=== PATIENT | female | born 1935 | race Caucasian/White ===

== ENCOUNTER 2016-06-16 17:51 | Emergency (ER) | payer OTHER, MEDICARE ==
[~2016-06-16] VITALS: Ht 154.9 cm; Wt 70.3 kg
[~2016-06-16 17:51] MED LIST: BACL10TA PO; BENA40TA2 PO; CALC-112 PO; CALC-226 PO; CARV12.548 PO; CETI1TAB2 PO; DILT300C3 PO; GALA12TA4 PO; MEMA10TA12 PO; OMEG1CAP48 PO; SENN-153 PO; SIMV20TA2 PO; VIT1CAPS33 PO; WARF3TAB PO; WARF4TAB2 PO
[2016-06-16 18:29] VITALS: BP 143/69; PULSE 64; RESP 18; TEMP 96.3; O2SAT 93
[2016-06-16 18:58] LABS: BASOPHILS # (AUTO) 0.1 K/uL (0.0-0.2); BASOPHILS % (AUTO) 0.6 % (0.0-2.0); EOSINOPHILS # (AUTO) 0.3 K/uL (0.0-0.4); EOSINOPHILS % (AUTO) 3.2 % (0.0-4.0); HEMATOCRIT 41.1 % (36-48); HEMOGLOBIN 14.1 g/dL (12.0-16.0); LYMPHOCYTES # (AUTO) 1.3 K/uL (1.0-5.5); LYMPHOCYTES % (AUTO) 14.7 % (20.5-51.5); MEAN CORPUSCULAR HEMOGLOBIN 32 pg (27-31); MEAN CORPUSCULAR HGB CONC 34 % (32-36); MEAN CORPUSCULAR VOLUME 94 fL (79.0-98.0); MONOCYTES # (AUTO) 1.1 K/uL (0.0-1.0); MONOCYTES % (AUTO) 11.9 % (1.7-9.3); NEUTROPHILS # (AUTO) 6.3 K/uL (1.8-7.7); NEUTROPHILS % (AUTO) 69.6 % (40.0-70.0); PLATELET COUNT (AUTO) 160 K/uL (130-430); RED BLOOD CELL COUNT(AUTO) 4.39 MIL/uL (4.2-6.2); RED CELL DISTRIBUTION WIDTH 14.1 % (9.0-15.0); WHITE BLOOD COUNT (AUTO) 9.1 K/uL (4.8-10.8)
[2016-06-16 19:01] LABS: ANION GAP 8 (5-15); CALCIUM 8.7 mg/dL (8.4-11.0); CHLORIDE 100 mmol/L (98-107); CREATININE 1.24 mg/dL (0.55-1.30); GLUCOSE 148 mg/dL (70-99); SODIUM SERUM 136 mmol/L (136-145); UREA NITROGEN, BLOOD 33 mg/dL (8-21)
[2016-06-16 19:06] LABS: ALANINE AMINOTRANSFERASE 21 U/L (12-78); ALBUMIN 3.6 g/dL (3.4-4.8); ASPARTATE AMINOTRANSFERASE 16 U/L (10-37); CREATINE KINASE, TOTAL 39 U/L (26-192); TOTAL BILIRUBIN 0.3 mg/dL (0.0-1.0); TOTAL PROTEIN, SERUM 7.6 g/dL (6.4-8.3)
[2016-06-16 19:09] LABS: PROTHROMBIN TIME 41.4 SECS (9.5-12.5)
[2016-06-16 19:10] LABS: INR 3.7 (0.8-1.2)
[2016-06-16 20:25] VITALS: BP 124/72; PULSE 84; RESP 18; TEMP 96.3; O2SAT 95
== END 2016-06-16 20:54 | disposition home or self-care (01) ==
LOC: SED 17:51
DX: R42 Dizziness and giddiness (principal); I10 Essential (primary) hypertension; E78.00 Pure hypercholesterolemia, unspecified; Z88.2 Allergy status to sulfonamides; Z88.5 Allergy status to narcotic agent; Z88.8 Allergy status to other drugs, medicaments and biological substances; Z86.73 Personal history of transient ischemic attack (TIA), and cerebral infarction without residual deficits; Z86.59 Personal history of other mental and behavioral disorders; Z79.899 Other long term (current) drug therapy
CPT/HCPCS: 36415; 70450-TC; 71010; 80053; 82550-TC; 84484; 85025; 85610-TC; 85730-TC; 93005; 99285

== ENCOUNTER 2016-06-25 08:10 | Outpatient (CLI) | payer OTHER, MEDICARE | END 2016-06-25 18:48 | disposition home or self-care (01) | LOC: SUS 08:10 | PROVIDERS: ATTEND Internal Medicine | DX: M54.6 Pain in thoracic spine (principal); R11.0 Nausea | CPT/HCPCS: 76700-TC ==

== ENCOUNTER 2019-12-17 13:28 | Emergency (ER) | payer OTHER, MEDICARE ==
[~2019-12-17] VITALS: Ht 154.9 cm; Wt 62.6 kg
[~2019-12-17 13:28] MED LIST changes: -BENA40TA2 PO; +BENA40TA8 PO; -CALC-226 PO; +CALC-823 PO; -DILT300C3 PO; +DILT300C54 PO; +MEMA10TA PO; -MEMA10TA12 PO
[2019-12-17 13:34] VITALS: BP_SYST 190
--- NOTE | 2019-12-17 13:34 | NUR ---
Patient to ER bed 06 to gown for evaluation. Side rails up. Report given to FLOYD FLOREZ.
--- NOTE | 2019-12-17 13:50 | NUR ---
ER Dr. DOWNS at bedside examining patient.
--- NOTE | 2019-12-17 14:00 | NUR ---
BIB HER DAUGHTER FOR ABD PAIN IN THE LOWER MIDDLE. HAS NOT HAD A BM IN SEVERAL DAYS. PT HAS DEMENTIA/ALZHEIMER'S. V/S STABLE AND AAOX3. WILL MONITOR FOR SAFETY
[2019-12-17 14:11] LABS: BASOPHILS % (AUTO) 0.7 % (0.0-2.0); EOSINOPHILS # (AUTO) 0.1 K/uL (0.0-0.4); EOSINOPHILS % (AUTO) 1.1 % (0.0-4.0); HEMATOCRIT 45.5 % (36-48); HEMOGLOBIN 15.1 g/dL (12.0-16.0); LYMPHOCYTES % (AUTO) 17.3 % (20.5-51.5); MEAN CORPUSCULAR HEMOGLOBIN 33 pg (27-31); MEAN CORPUSCULAR HGB CONC 33 % (32-36); MEAN CORPUSCULAR VOLUME 98 fL (79.0-98.0); MONOCYTES # (AUTO) 0.5 K/uL (0.0-1.0); NEUTROPHILS # (AUTO) 4.2 K/uL (1.8-7.7); NEUTROPHILS % (AUTO) 71.9 % (40.0-70.0); PLATELET COUNT (AUTO) 164 K/uL (130-430); RED BLOOD CELL COUNT(AUTO) 4.63 MIL/uL (4.2-6.2); RED CELL DISTRIBUTION WIDTH 14.1 % (9.0-15.0); WHITE BLOOD COUNT (AUTO) 5.8 K/uL (4.8-10.8)
--- NOTE | 2019-12-17 14:20 | NUR ---
PT ABLE TO AMBULATE TO BATHROOM WITH WALKER. VOIDED, SPECIMEN SENT TO LAB
[2019-12-17 14:29] LABS: ANION GAP 8 (5-15); CALCIUM 9.3 mg/dL (8.4-11.0); CHLORIDE 102 mmol/L (98-107); GLUCOSE 110 mg/dL (70-99); POTASSIUM 4.3 mmol/L (3.5-5.1); SODIUM SERUM 137 mmol/L (136-145); UREA NITROGEN, BLOOD 16 mg/dL (8-21)
--- NOTE | 2019-12-17 14:30 | NUR ---
Patient transported to radiology via , accompanied by SHAKER PLATE OPERATOR.
[2019-12-17 14:35] LABS: ALANINE AMINOTRANSFERASE 27 U/L (12-78); ALBUMIN 3.4 g/dL (3.4-4.8); ASPARTATE AMINOTRANSFERASE 19 U/L (10-37); TOTAL BILIRUBIN 0.4 mg/dL (0.0-1.0)
[2019-12-17 14:38] LABS: BILIRUBIN,URINE NEGATIVE (NEGATIVE); BLOOD, URINE NEGATIVE (NEGATIVE); CLARITY/URINE CLOUDY (CLEAR); COLOR,URINE YELLOW (YELLOW); GLUCOSE,URINE NEGATIVE (NEGATIVE); KETONES,URINE NEGATIVE (NEGATIVE); LEUKOCYTE ESTERASE ,URINE 3+ (NEGATIVE); NITRITE, URINE POSITIVE (NEGATIVE); PH,URINE 7.5 (5.0-8.0); PROTEIN URINE NEGATIVE (NEGATIVE); UROBILINOGEN,URINE 0.2 (0.2-1.0)
[2019-12-17 14:52] LABS: BACTERIA,URINE MODERATE /HPF (None Seen); MUCUS,URINE 1+ /LPF (None Seen); RBC,URINE 0-3 /HPF (0-3)
[2019-12-17 14:54] VITALS: BP_SYST 190
--- NOTE | 2019-12-17 15:00 | NUR ---
Patient given written and verbal discharge instructions and verbalizes understanding. ER MD discussed with patient the results and treatment provided. Patient in stable condition. ID arm band removed. IV catheter removed intact and dressing applied, no active bleeding. Rx of MACROBID given. Patient educated on pain management and to follow up with PMD. Pain Scale 3/10. Opportunity for questions provided and answered. Medication side effect fact sheet provided.
== END 2019-12-17 14:54 | disposition home or self-care (01) ==
LOC: SED 13:28
DX: N39.0 Urinary tract infection, site not specified (principal); I10 Essential (primary) hypertension; Z88.2 Allergy status to sulfonamides; Z88.5 Allergy status to narcotic agent; Z88.8 Allergy status to other drugs, medicaments and biological substances; Z79.899 Other long term (current) drug therapy
CPT/HCPCS: 36415; 80053; 81000-TC; 85025; 87086; 87186-TC; 99284

== ENCOUNTER 2020-06-08 09:32 | Emergency (ER) | payer OTHER, MEDICARE ==
[~2020-06-08] VITALS: Ht 152.4 cm; Wt 61.7 kg
--- NOTE | 2020-06-08 09:43 | NUR ---
Patient to ER bed 06 to gown for evaluation. Side rails up.
[2020-06-08 09:44] VITALS: BP_SYST 163
--- NOTE | 2020-06-08 09:50 | NUR ---
Pt came to ER after fracturing toe. Was seen in urgetn care, splint in place, no distress noted.
--- NOTE | 2020-06-08 09:50 | NUR ---
ER at bedside examining patient.
[2020-06-08] MEDS ORDERED: IBUPROFEN 400 MG TABLET ONE (09:52)
[2020-06-08] MEDS: IBUPROFEN 400 MG TABLET PO ONE (10:03)
[2020-06-08] MEDS: HYDROcodone/ACETAMIN 5-325 MG TAB (NORCO/ VICODIN) PO ONE (10:04)
--- NOTE | 2020-06-08 10:30 | NUR ---
Pt resting in [facility] at this time, daughter at bedside
[2020-06-08] MEDS ORDERED: IBUP-1969 PO (10:46)
[2020-06-08] MEDS ORDERED: HYDR-3110 PO ×2 (10:46→10:47)
[2020-06-08] MEDS: MORPHINE 2 MG/ML INJ. SYRINGE IM ONE (10:47)
[2020-06-08 11:06] VITALS: BP_SYST 145
--- NOTE | 2020-06-08 11:07 | NUR ---
Patient given written and verbal discharge instructions and verbalizes understanding. ER MD discussed with patient the results and treatment provided. Patient in stable condition. ID arm band removed. Rx of [place] and Motrin given. Patient educated on pain management and to follow up with PMD. Pain Scale 2/10. Opportunity for questions provided and answered. Medication side effect fact sheet provided.
== END 2020-06-08 11:06 | disposition home or self-care (01) ==
LOC: SED 09:32
DX: S82.841A Displaced bimalleolar fracture of right lower leg, initial encounter for closed fracture (principal); I10 Essential (primary) hypertension; Z88.2 Allergy status to sulfonamides; Z88.5 Allergy status to narcotic agent; Z88.8 Allergy status to other drugs, medicaments and biological substances; Z79.899 Other long term (current) drug therapy; W18.39XA Other fall on same level, initial encounter; Y93.89 Activity, other specified; Y92.89 Other specified places as the place of occurrence of the external cause; Y99.8 Other external cause status
CPT/HCPCS: 29515; 73610; 73630; 96372; 99284; J2270

== ENCOUNTER 2020-08-27 10:53 | Day surgery (SDC) | payer OTHER, MEDICARE, SELFPAY ==
[~2020-08-27] VITALS: Ht 154.9 cm; Wt 59.0 kg
[~2020-08-27 10:53] MED LIST changes: +HYDR-4280 PO; +IBUP-1969 PO
[2020-08-27] MEDS ORDERED: MEPERIDINE 100 MG INJ. 100 MG/ML VIAL ONE (11:12)
[2020-08-27] MEDS: MIDAZOLAM HCL 5 MG/5 ML VIAL ONE ×2 (12:36→12:38)
[2020-08-27] MEDS: NALOXONE HCL 0.4 MG/ML AMP (NARCAN) IVP ONE ×2 (13:14→13:17)
[2020-08-27] MEDS: FLUMAZENIL 0.1 MG/ML IVP ONE ×2 (13:15→13:18)
[2020-08-27 15:00] VITALS: BP_SYST 98
[2020-09-09] MEDS ORDERED: BENA20TA9 PO (13:31)
[2020-09-09] MEDS ORDERED: MEMA10TA PO (13:31)
[2020-09-09] MEDS ORDERED: VIT1CAPS33 PO (13:31)
[2020-09-09] MEDS ORDERED: XARELTO (13:31)
[2020-09-09] MEDS ORDERED: SIMV-43 PO (13:31)
[2020-09-09] MEDS ORDERED: BACL10TA PO (13:31)
[2020-09-09] MEDS ORDERED: FLUT16SP24 NS (13:31)
[2020-09-09] MEDS ORDERED: SENN8.6T19 PO (13:31)
[2020-09-09] MEDS ORDERED: GALA16CA PO (13:31)
[2020-09-09] MEDS ORDERED: CALC-1100 PO (13:31)
[2020-09-09] MEDS ORDERED: DILT360C29 PO (13:31)
[2020-09-09] MEDS ORDERED: CARV12.548 PO (13:31)
[2020-09-09] MEDS ORDERED: ACETAMINOPHEN (13:31)
[2020-09-09] MEDS ORDERED: ZYRTEC PO (13:31)
[2020-09-09] MEDS ORDERED: OMEG500C3 PO (13:31)
[2020-09-12] MEDS ORDERED: LOSA50TA3 PO (09:52)
== END 2020-08-27 14:50 ==
LOC: SGI 10:53 → SMU 10:59 → SGI 14:50
PROVIDERS: ATTEND Internal Medicine Gastroenterology
DX: R13.10 Dysphagia, unspecified (principal); K29.50 Unspecified chronic gastritis without bleeding; K21.00 Gastro-esophageal reflux disease with esophagitis, without bleeding; G30.9 Alzheimer's disease, unspecified; F02.80 Dementia in other diseases classified elsewhere, unspecified severity, without behavioral disturbance, psychotic disturbance, mood disturbance, and anxiety; E78.5 Hyperlipidemia, unspecified; I10 Essential (primary) hypertension; I26.99 Other pulmonary embolism without acute cor pulmonale; Z20.828 Contact with and (suspected) exposure to other viral communicable diseases; Z79.899 Other long term (current) drug therapy
CPT/HCPCS: 36415; 43239; 43248; 82962; 87081; 88305; 88312; 88313; 99152; C1769; G0378; J2175; J2250; J2310; J3490; J7030; U0003

== ENCOUNTER 2021-02-10 09:53 | Inpatient (IN) | payer OTHER, MEDICARE, SELFPAY ==
[~2021-02-10] VITALS: Ht 154.9 cm; Wt 62.1 kg
[~2021-02-10 09:53] MED LIST changes: +ACETAMINOPHEN; -BENA40TA8 PO; +CALC-1100 PO; -CALC-112 PO; -CALC-823 PO; -CETI1TAB2 PO; -DILT300C54 PO; +DILT360C29 PO; +FLUT16SP24 NS; -GALA12TA4 PO; +GALA16CA PO; -HYDR-4280 PO; -IBUP-1969 PO; +LOSA50TA3 PO; -OMEG1CAP48 PO; +OMEG500C3 PO; -SENN-153 PO; +SENN8.6T19 PO; +SIMV-43 PO; -SIMV20TA2 PO; -WARF3TAB PO; -WARF4TAB2 PO; +XARELTO; +ZYRTEC PO
[2021-02-10 10:09] VITALS: BP_SYST 135
[2021-02-10] MEDS ORDERED: traMADol HCL HCL 50 MG TABLET (ULTRAM) PO ONE (10:30)
[2021-02-10 10:58] LABS: BASOPHILS % (AUTO) 0.8 % (0.0-2.0); EOSINOPHILS # (AUTO) 0.2 K/uL (0.0-0.4); EOSINOPHILS % (AUTO) 4.7 % (0.0-4.0); HEMATOCRIT 39.3 % (36-48); HEMOGLOBIN 13.2 g/dL (12.0-16.0); LYMPHOCYTES # (AUTO) 0.4 K/uL (1.0-5.5); LYMPHOCYTES % (AUTO) 7.6 % (20.5-51.5); MEAN CORPUSCULAR HEMOGLOBIN 34 pg (27-31); MEAN CORPUSCULAR HGB CONC 34 % (32-36); MEAN CORPUSCULAR VOLUME 100 fL (79.0-98.0); MONOCYTES % (AUTO) 19.5 % (1.7-9.3); NEUTROPHILS # (AUTO) 3.5 K/uL (1.8-7.7); NEUTROPHILS % (AUTO) 67.4 % (40.0-70.0); PLATELET COUNT (AUTO) 169 K/uL (130-430); RED BLOOD CELL COUNT(AUTO) 3.93 MIL/uL (4.2-6.2); RED CELL DISTRIBUTION WIDTH 13.3 % (9.0-15.0); WHITE BLOOD COUNT (AUTO) 5.2 K/uL (4.8-10.8)
[2021-02-10 11:07] LABS: ANION GAP 6 (5-15); CALCIUM 8.3 mg/dL (8.4-11.0); CHLORIDE 89 mmol/L (98-107); CREATININE 0.65 mg/dL (0.55-1.30); GLUCOSE 107 mg/dL (70-99); POTASSIUM 4.1 mmol/L (3.5-5.1); SODIUM SERUM 123 mmol/L (136-145); UREA NITROGEN, BLOOD 10 mg/dL (8-21)
[2021-02-10 11:13] LABS: ALANINE AMINOTRANSFERASE 17 U/L (12-78); ALBUMIN 2.8 g/dL (3.4-4.8); ASPARTATE AMINOTRANSFERASE 16 U/L (10-37); TOTAL BILIRUBIN 0.4 mg/dL (0.0-1.0)
[2021-02-10] MEDS ORDERED: ONDANSETRON 4 MG ODT TAB PO ONE (11:15)
[2021-02-10 11:25] LABS: BILIRUBIN,URINE NEGATIVE (NEGATIVE); BLOOD, URINE 3+ (NEGATIVE); CLARITY/URINE CLEAR (CLEAR); COLOR,URINE YELLOW (YELLOW); GLUCOSE,URINE NEGATIVE (NEGATIVE); KETONES,URINE NEGATIVE (NEGATIVE); LEUKOCYTE ESTERASE ,URINE NEGATIVE (NEGATIVE); NITRITE, URINE NEGATIVE (NEGATIVE); PROTEIN URINE NEGATIVE (NEGATIVE); UROBILINOGEN,URINE 0.2 (0.2-1.0)
[2021-02-10 11:57] LABS: BACTERIA,URINE RARE /HPF (None Seen); RBC,URINE 20-50 /HPF (0-3); WBC,URINE 0-3 /HPF (0-3)
[2021-02-10] MEDS ORDERED: NACL 0.9% 1,000 ML IV ONE (12:15)
[2021-02-10] MEDS ORDERED: cefTRIAXone 1 GM IVPB PREMIX 50 ML IV ONE (12:15)
[2021-02-10 14:55] VITALS: BP_SYST 129
[2021-02-10] MEDS: 0.45% NACL 1,000 ML IV SCH ×2 (15:00→20:45)
[2021-02-10 16:59] VITALS: BP_SYST 129
[2021-02-10 20:00] VITALS: BP_SYST 149
[2021-02-10] MEDS: SENNOSIDES 8.6 MG TABLET PO SCH (20:40)
[2021-02-10] MEDS: MEMANTINE HCL 5 MG TABLET PO SCH (20:40)
[2021-02-10] MEDS: CARVEDILOL 12.5 MG TABLET (COREG) PO SCH (20:41)
[2021-02-10] MEDS: RIVAROXABAN 10 MG TABLET PO SCH (20:45)
[2021-02-10] MEDS: MULTIVITS,CA,MINERALS/IRON/FA 1 TABLET PO SCH (20:46)
[2021-02-10] MEDS ORDERED: VIT C PO SCH (21:00)
[2021-02-10] MEDS ORDERED: CALCIUM CARBONATE PO SCH (21:00)
[2021-02-10] MEDS ORDERED: VITAMIN D3 PO SCH (21:00)
[2021-02-10] MEDS ORDERED: COPPER PO SCH (21:00)
[2021-02-10] MEDS ORDERED: VIT E PO SCH (21:00)
[2021-02-10] MEDS ORDERED: ZINC PO SCH (21:00)
[2021-02-10] MEDS ORDERED: VIT A PO SCH (21:00)
[2021-02-10 23:42] VITALS: BP_SYST 151
[2021-02-11] MEDS: DIPHENHYDRAMINE INJ 50 MG/ML VIAL IVP PRN (01:03)
[2021-02-11] MEDS: 0.45% NACL 1,000 ML IV SCH ×2 (05:30→08:49)
[2021-02-11 06:53] LABS: BASOPHILS % (AUTO) 0.9 % (0.0-2.0); EOSINOPHILS # (AUTO) 0.2 K/uL (0.0-0.4); HEMATOCRIT 39.7 % (36-48); HEMOGLOBIN 13.5 g/dL (12.0-16.0); LYMPHOCYTES # (AUTO) 0.6 K/uL (1.0-5.5); LYMPHOCYTES % (AUTO) 14.3 % (20.5-51.5); MEAN CORPUSCULAR HEMOGLOBIN 34 pg (27-31); MEAN CORPUSCULAR HGB CONC 34 % (32-36); MEAN CORPUSCULAR VOLUME 100 fL (79.0-98.0); MONOCYTES # (AUTO) 0.7 K/uL (0.0-1.0); MONOCYTES % (AUTO) 16.8 % (1.7-9.3); NEUTROPHILS # (AUTO) 2.7 K/uL (1.8-7.7); PLATELET COUNT (AUTO) 186 K/uL (130-430); RED BLOOD CELL COUNT(AUTO) 3.99 MIL/uL (4.2-6.2); RED CELL DISTRIBUTION WIDTH 13.2 % (9.0-15.0); WHITE BLOOD COUNT (AUTO) 4.2 K/uL (4.8-10.8)
[2021-02-11 07:41] LABS: ALANINE AMINOTRANSFERASE 15 U/L (12-78); ANION GAP 7 (5-15); ASPARTATE AMINOTRANSFERASE 17 U/L (10-37); CALCIUM 8.7 mg/dL (8.4-11.0); CHLORIDE 94 mmol/L (98-107); CREATININE 0.48 mg/dL (0.55-1.30); FREE T4 (FREE THYROXINE) 1.2 ng/dl (0.8-1.5); GLUCOSE 85 mg/dL (70-99); POTASSIUM 3.5 mmol/L (3.5-5.1); SODIUM SERUM 128 mmol/L (136-145); THYROID STIMULATING HORMONE 5.51 uIu/mL (0.36-3.74); TOTAL BILIRUBIN 0.2 mg/dL (0.0-1.0); UREA NITROGEN, BLOOD 8 mg/dL (8-21)
[2021-02-11 08:00] VITALS: BP_SYST 156
[2021-02-11] MEDS: OMEGA-3/DHA/EPA/FISH OIL 1 GM CAPSULE PO SCH (08:39)
[2021-02-11] MEDS: DILTIAZEM HCL 180 MG CAP.SR.24H PO SCH (08:39)
[2021-02-11] MEDS: SIMVASTATIN 20 MG TABLET PO SCH (08:39)
[2021-02-11] MEDS: CARVEDILOL 12.5 MG TABLET (COREG) PO SCH (08:40)
[2021-02-11] MEDS: CALCIUM CARBONATE/VITAMIN D3 1 TAB TABLET PO SCH (08:40)
[2021-02-11] MEDS: SENNOSIDES 8.6 MG TABLET PO SCH (08:40)
[2021-02-11] MEDS: MEMANTINE HCL 5 MG TABLET PO SCH (08:40)
[2021-02-11] MEDS: MULTIVITS,CA,MINERALS/IRON/FA 1 TABLET PO SCH (08:40)
[2021-02-11] MEDS: GALANTAMINE 16 MG PO SCH (08:46)
[2021-02-11] MEDS ORDERED: DILTIAZEM HCL PO SCH (09:00)
[2021-02-11] MEDS ORDERED: GALANTAMINE HBR PO SCH (09:00)
[2021-02-11] MEDS ORDERED: OMEGA PO SCH (09:00)
[2021-02-11] MEDS ORDERED: FATTY ACIDS PO SCH (09:00)
[2021-02-11 11:18] LABS: POTASSIUM,URINE RANDOM 10 mmol/L (12-75)
[2021-02-11 11:19] LABS: URINE SODIUM, RANDOM 45 mmol/L (40-220)
[2021-02-11 11:23] VITALS: BP_SYST 129
[2021-02-11 20:00] VITALS: BP_SYST 150
[2021-02-12 00:08] VITALS: BP_SYST 136
[2021-02-12] MEDS: 0.45% NACL 1,000 ML IV SCH ×2 (02:02→08:10)
[2021-02-12] MEDS: LEVOTHYROXINE SODIUM 0.025 MG TABLET PO SCH (06:59)
[2021-02-12 07:15] LABS: ANION GAP 8 (5-15); CHLORIDE 89 mmol/L (98-107); CREATININE 0.47 mg/dL (0.55-1.30); GLUCOSE 87 mg/dL (70-99); POTASSIUM 3.5 mmol/L (3.5-5.1); SODIUM SERUM 124 mmol/L (136-145); UREA NITROGEN, BLOOD 7 mg/dL (8-21)
[2021-02-12 08:00] VITALS: BP_SYST 138; BP_SYST 163
[2021-02-12] MEDS: CARVEDILOL 12.5 MG TABLET (COREG) PO SCH ×2 (08:06→20:53)
[2021-02-12] MEDS: SENNOSIDES 8.6 MG TABLET PO SCH ×2 (08:06→21:12)
[2021-02-12] MEDS: SIMVASTATIN 20 MG TABLET PO SCH (08:06)
[2021-02-12] MEDS: OMEGA-3/DHA/EPA/FISH OIL 1 GM CAPSULE PO SCH (08:06)
[2021-02-12] MEDS: CALCIUM CARBONATE/VITAMIN D3 1 TAB TABLET PO SCH ×2 (08:06→20:52)
[2021-02-12] MEDS: MULTIVITS,CA,MINERALS/IRON/FA 1 TABLET PO SCH ×2 (08:07→21:12)
[2021-02-12] MEDS: GALANTAMINE 16 MG PO SCH (08:08)
[2021-02-12] MEDS: DILTIAZEM HCL 180 MG CAP.SR.24H PO SCH (08:08)
[2021-02-12] MEDS: MEMANTINE HCL 5 MG TABLET PO SCH ×2 (08:08→20:52)
[2021-02-12] MEDS ORDERED: POTASSIUM CHLORIDE 20 MEQ/PKT PACKET PO ONE (11:30)
[2021-02-12] MEDS: NACL 0.9% 1,000 ML IV SCH (11:30)
[2021-02-12 12:25] VITALS: BP_SYST 124
[2021-02-12] MEDS: cefTRIAXone 1 GM in D5W 50 ML IV SCH (13:06)
[2021-02-12] MEDS: DIPHENHYDRAMINE INJ 50 MG/ML VIAL IVP PRN ×2 (14:47→20:54)
[2021-02-12] MEDS: RIVAROXABAN 10 MG TABLET PO SCH (17:39)
[2021-02-12] MEDS ORDERED: DIPHENHYDRAMINE INJ 50 MG/ML VIAL IVP ONE (17:45)
[2021-02-12 17:58] VITALS: BP_SYST 155
[2021-02-12] MEDS: QUEtiapine FUMARATE 25 MG TABLET PO SCH (18:00)
[2021-02-12 20:45] VITALS: BP_SYST 145
[2021-02-12] MEDS: POTASSIUM CHLORIDE 20 MEQ/PKT PACKET PO SCH (20:52)
[2021-02-13 00:31] VITALS: BP_SYST 135
[2021-02-13] MEDS: NACL 0.9% 1,000 ML IV SCH ×3 (06:36→16:28)
[2021-02-13 06:43] LABS: BASOPHILS % (AUTO) 0.7 % (0.0-2.0); EOSINOPHILS # (AUTO) 0.2 K/uL (0.0-0.4); EOSINOPHILS % (AUTO) 3.1 % (0.0-4.0); HEMATOCRIT 40.8 % (36-48); HEMOGLOBIN 13.8 g/dL (12.0-16.0); LYMPHOCYTES # (AUTO) 0.9 K/uL (1.0-5.5); LYMPHOCYTES % (AUTO) 16.2 % (20.5-51.5); MEAN CORPUSCULAR HEMOGLOBIN 33 pg (27-31); MEAN CORPUSCULAR HGB CONC 34 % (32-36); MEAN CORPUSCULAR VOLUME 99 fL (79.0-98.0); MONOCYTES # (AUTO) 0.8 K/uL (0.0-1.0); MONOCYTES % (AUTO) 15.5 % (1.7-9.3); NEUTROPHILS # (AUTO) 3.4 K/uL (1.8-7.7); NEUTROPHILS % (AUTO) 64.5 % (40.0-70.0); PLATELET COUNT (AUTO) 224 K/uL (130-430); RED BLOOD CELL COUNT(AUTO) 4.13 MIL/uL (4.2-6.2); RED CELL DISTRIBUTION WIDTH 13.2 % (9.0-15.0); WHITE BLOOD COUNT (AUTO) 5.3 K/uL (4.8-10.8)
[2021-02-13] MEDS: LEVOTHYROXINE SODIUM 0.025 MG TABLET PO SCH (06:58)
[2021-02-13] MEDS ORDERED: LEVOTHYROXINE SODIUM 0.025 MG TABLET PO SCH (07:00)
[2021-02-13 07:21] LABS: ANION GAP 8 (5-15); CHLORIDE 98 mmol/L (98-107); CREATININE 0.64 mg/dL (0.55-1.30); GLUCOSE 93 mg/dL (70-99); POTASSIUM 3.7 mmol/L (3.5-5.1); SODIUM SERUM 131 mmol/L (136-145); UREA NITROGEN, BLOOD 11 mg/dL (8-21)
[2021-02-13 07:27] LABS: URIC ACID 2.5 mg/dL (2.4-7.0)
[2021-02-13 08:00] VITALS: BP_SYST 155
[2021-02-13] MEDS: SENNOSIDES 8.6 MG TABLET PO SCH ×2 (08:23→20:57)
[2021-02-13] MEDS: MEMANTINE HCL 5 MG TABLET PO SCH ×2 (08:23→20:56)
[2021-02-13] MEDS: BACLOFEN 10 MG TABLET PO PRN (08:23)
[2021-02-13] MEDS: SIMVASTATIN 20 MG TABLET PO SCH (08:23)
[2021-02-13] MEDS: MULTIVITS,CA,MINERALS/IRON/FA 1 TABLET PO SCH ×2 (08:23→20:57)
[2021-02-13] MEDS: OMEGA-3/DHA/EPA/FISH OIL 1 GM CAPSULE PO SCH (08:23)
[2021-02-13] MEDS: CALCIUM CARBONATE/VITAMIN D3 1 TAB TABLET PO SCH ×2 (08:24→20:57)
[2021-02-13] MEDS: POTASSIUM CHLORIDE 20 MEQ/PKT PACKET PO SCH ×2 (08:24→20:56)
[2021-02-13] MEDS: DILTIAZEM HCL 180 MG CAP.SR.24H PO SCH (08:24)
[2021-02-13] MEDS: CARVEDILOL 12.5 MG TABLET (COREG) PO SCH ×2 (08:24→20:57)
[2021-02-13] MEDS: GALANTAMINE 16 MG PO SCH (08:34)
[2021-02-13 11:30] VITALS: BP_SYST 161
[2021-02-13] MEDS ORDERED: MINERAL OIL 133 ML ENEMA RC ONE (13:00)
[2021-02-13] MEDS ORDERED: SODIUM PHOSPHATE,MONO-DIBASIC 133 ML ENEMA RC ONE (13:00)
[2021-02-13] MEDS: cefTRIAXone 1 GM in D5W 50 ML IV SCH (13:40)
[2021-02-13 15:38] VITALS: BP_SYST 127
[2021-02-13] MEDS ORDERED: LACTULOSE 20 GM/30 ML UDC PO ONE (16:30)
[2021-02-13 16:39] LABS: BASOPHILS % (AUTO) 0.7 % (0.0-2.0); EOSINOPHILS # (AUTO) 0.1 K/uL (0.0-0.4); EOSINOPHILS % (AUTO) 2.5 % (0.0-4.0); HEMATOCRIT 42.1 % (36-48); HEMOGLOBIN 14.1 g/dL (12.0-16.0); LYMPHOCYTES # (AUTO) 0.7 K/uL (1.0-5.5); LYMPHOCYTES % (AUTO) 12.9 % (20.5-51.5); MEAN CORPUSCULAR HEMOGLOBIN 33 pg (27-31); MEAN CORPUSCULAR HGB CONC 34 % (32-36); MEAN CORPUSCULAR VOLUME 100 fL (79.0-98.0); MONOCYTES # (AUTO) 0.7 K/uL (0.0-1.0); MONOCYTES % (AUTO) 13.3 % (1.7-9.3); NEUTROPHILS % (AUTO) 70.6 % (40.0-70.0); PLATELET COUNT (AUTO) 197 K/uL (130-430); RED BLOOD CELL COUNT(AUTO) 4.23 MIL/uL (4.2-6.2); RED CELL DISTRIBUTION WIDTH 13.3 % (9.0-15.0); WHITE BLOOD COUNT (AUTO) 5.6 K/uL (4.8-10.8)
[2021-02-13 16:54] LABS: ALANINE AMINOTRANSFERASE 15 U/L (12-78); ALBUMIN 2.9 g/dL (3.4-4.8); ANION GAP 7 (5-15); ASPARTATE AMINOTRANSFERASE 13 U/L (10-37); CALCIUM 8.9 mg/dL (8.4-11.0); CHLORIDE 95 mmol/L (98-107); CREATININE 0.67 mg/dL (0.55-1.30); GLUCOSE 110 mg/dL (70-99); SODIUM SERUM 128 mmol/L (136-145); TOTAL BILIRUBIN 0.2 mg/dL (0.0-1.0); UREA NITROGEN, BLOOD 10 mg/dL (8-21)
[2021-02-13] MEDS: QUEtiapine FUMARATE 25 MG TABLET PO SCH (17:27)
[2021-02-13] MEDS: traMADol HCL HCL 50 MG TABLET (ULTRAM) PO PRN (17:28)
[2021-02-13] MEDS: RIVAROXABAN 10 MG TABLET PO SCH (17:31)
[2021-02-13 20:46] VITALS: BP_SYST 109
[2021-02-14 00:19] VITALS: BP_SYST 94
[2021-02-14 02:51] VITALS: BP_SYST 94
[2021-02-14 06:48] LABS: BASOPHILS % (AUTO) 0.8 % (0.0-2.0); EOSINOPHILS # (AUTO) 0.2 K/uL (0.0-0.4); EOSINOPHILS % (AUTO) 2.8 % (0.0-4.0); HEMOGLOBIN 13.5 g/dL (12.0-16.0); LYMPHOCYTES # (AUTO) 0.8 K/uL (1.0-5.5); LYMPHOCYTES % (AUTO) 14.3 % (20.5-51.5); MEAN CORPUSCULAR HEMOGLOBIN 34 pg (27-31); MEAN CORPUSCULAR HGB CONC 34 % (32-36); MEAN CORPUSCULAR VOLUME 99 fL (79.0-98.0); MONOCYTES # (AUTO) 0.8 K/uL (0.0-1.0); MONOCYTES % (AUTO) 12.8 % (1.7-9.3); NEUTROPHILS # (AUTO) 4.1 K/uL (1.8-7.7); NEUTROPHILS % (AUTO) 69.3 % (40.0-70.0); PLATELET COUNT (AUTO) 221 K/uL (130-430); RED BLOOD CELL COUNT(AUTO) 4.03 MIL/uL (4.2-6.2); RED CELL DISTRIBUTION WIDTH 13.4 % (9.0-15.0); WHITE BLOOD COUNT (AUTO) 5.9 K/uL (4.8-10.8)
[2021-02-14] MEDS: traMADol HCL HCL 50 MG TABLET (ULTRAM) PO PRN (06:52)
[2021-02-14] MEDS: LEVOTHYROXINE SODIUM 0.025 MG TABLET PO SCH (07:00)
[2021-02-14] MEDS: GALANTAMINE 16 MG PO SCH (09:00)
[2021-02-14 09:02] LABS: ALANINE AMINOTRANSFERASE 21 U/L (12-78); ALBUMIN 2.8 g/dL (3.4-4.8); ANION GAP 7 (5-15); ASPARTATE AMINOTRANSFERASE 14 U/L (10-37); CALCIUM 8.5 mg/dL (8.4-11.0); CHLORIDE 99 mmol/L (98-107); CREATININE 0.82 mg/dL (0.55-1.30); GLUCOSE 94 mg/dL (70-99); POTASSIUM 3.7 mmol/L (3.5-5.1); SODIUM SERUM 131 mmol/L (136-145); TOTAL BILIRUBIN 0.3 mg/dL (0.0-1.0); UREA NITROGEN, BLOOD 11 mg/dL (8-21)
[2021-02-14] MEDS: SENNOSIDES 8.6 MG TABLET PO SCH ×2 (09:32→21:17)
[2021-02-14] MEDS: LACTULOSE 20 GM/30 ML UDC PO SCH (09:32)
[2021-02-14] MEDS: DILTIAZEM HCL 180 MG CAP.SR.24H PO SCH (09:33)
[2021-02-14] MEDS: OMEGA-3/DHA/EPA/FISH OIL 1 GM CAPSULE PO SCH (09:33)
[2021-02-14] MEDS: MULTIVITS,CA,MINERALS/IRON/FA 1 TABLET PO SCH ×2 (09:33→21:16)
[2021-02-14] MEDS: CALCIUM CARBONATE/VITAMIN D3 1 TAB TABLET PO SCH ×2 (09:34→21:16)
[2021-02-14] MEDS: SIMVASTATIN 20 MG TABLET PO SCH (09:34)
[2021-02-14] MEDS: MEMANTINE HCL 5 MG TABLET PO SCH ×2 (09:34→21:16)
[2021-02-14] MEDS: POTASSIUM CHLORIDE 20 MEQ/PKT PACKET PO SCH ×2 (09:34→21:16)
[2021-02-14] MEDS: CARVEDILOL 12.5 MG TABLET (COREG) PO SCH ×2 (09:35→21:17)
[2021-02-14 11:43] VITALS: BP_SYST 120
[2021-02-14] MEDS: cefTRIAXone 1 GM in D5W 50 ML IV SCH (14:11)
[2021-02-14 15:13] VITALS: BP_SYST 112
[2021-02-14] MEDS ORDERED: SODIUM CHLORIDE 500 MG TABLET PO ONE (16:00)
[2021-02-14] MEDS: RIVAROXABAN 10 MG TABLET PO SCH (17:47)
[2021-02-14] MEDS: QUEtiapine FUMARATE 25 MG TABLET PO SCH (17:49)
[2021-02-14] MEDS ORDERED: MINERAL OIL 133 ML ENEMA RC ONE (19:15)
[2021-02-14] MEDS ORDERED: BISACODYL 5 MG TABLET.DR (DULCOLAX) PO ONE (19:15)
[2021-02-14 20:00] VITALS: BP_SYST 139
[2021-02-14] MEDS: SODIUM CHLORIDE 500 MG TABLET PO SCH (21:16)
[2021-02-15] VITALS: BP_SYST 96
[2021-02-15] MEDS: DIPHENHYDRAMINE INJ 50 MG/ML VIAL IVP PRN (00:36)
[2021-02-15] MEDS: traMADol HCL HCL 50 MG TABLET (ULTRAM) PO PRN ×2 (03:13→20:09)
[2021-02-15] MEDS: LEVOTHYROXINE SODIUM 0.025 MG TABLET PO SCH (06:07)
[2021-02-15] MEDS ORDERED: BISACODYL 5 MG TABLET.DR (DULCOLAX) ONE (07:52)
[2021-02-15 08:00] VITALS: BP_SYST 135
[2021-02-15] MEDS ORDERED: MINERAL OIL 133 ML ENEMA RC ONE ×2 (08:00→08:15)
[2021-02-15] MEDS: SIMVASTATIN 20 MG TABLET PO SCH (08:35)
[2021-02-15] MEDS: OMEGA-3/DHA/EPA/FISH OIL 1 GM CAPSULE PO SCH (08:35)
[2021-02-15] MEDS: LACTULOSE 20 GM/30 ML UDC PO SCH (08:35)
[2021-02-15] MEDS: DILTIAZEM HCL 180 MG CAP.SR.24H PO SCH (08:36)
[2021-02-15] MEDS: SENNOSIDES 8.6 MG TABLET PO SCH ×3 (08:37→21:00)
[2021-02-15] MEDS: MEMANTINE HCL 5 MG TABLET PO SCH ×3 (08:37→21:00)
[2021-02-15] MEDS: POTASSIUM CHLORIDE 20 MEQ/PKT PACKET PO SCH ×3 (08:37→21:00)
[2021-02-15] MEDS: SODIUM CHLORIDE 500 MG TABLET PO SCH ×4 (08:38→21:00)
[2021-02-15] MEDS: MULTIVITS,CA,MINERALS/IRON/FA 1 TABLET PO SCH ×3 (08:38→21:00)
[2021-02-15] MEDS: CARVEDILOL 12.5 MG TABLET (COREG) PO SCH ×3 (08:39→21:00)
[2021-02-15] MEDS: CALCIUM CARBONATE/VITAMIN D3 1 TAB TABLET PO SCH ×3 (08:39→21:00)
[2021-02-15] MEDS: GALANTAMINE 16 MG PO SCH (08:40)
[2021-02-15 09:25] LABS: BILIRUBIN,URINE NEGATIVE (NEGATIVE); BLOOD, URINE 3+ (NEGATIVE); CLARITY/URINE CLEAR (CLEAR); COLOR,URINE YELLOW (YELLOW); GLUCOSE,URINE NEGATIVE (NEGATIVE); KETONES,URINE NEGATIVE (NEGATIVE); LEUKOCYTE ESTERASE ,URINE NEGATIVE (NEGATIVE); NITRITE, URINE NEGATIVE (NEGATIVE); PROTEIN URINE NEGATIVE (NEGATIVE); UROBILINOGEN,URINE 0.2 (0.2-1.0)
[2021-02-15 09:59] LABS: BACTERIA,URINE RARE /HPF (None Seen); RBC,URINE 20-50 /HPF (0-3); WBC,URINE 0-3 /HPF (0-3)
[2021-02-15 11:24] VITALS: BP_SYST 121
[2021-02-15] MEDS: cefTRIAXone 1 GM in D5W 50 ML IV SCH (13:57)
[2021-02-15 15:29] VITALS: BP_SYST 126
[2021-02-15] MEDS ORDERED: GASTROGRAFIN 120 ML ONE (15:32)
[2021-02-15] MEDS: QUEtiapine FUMARATE 25 MG TABLET PO SCH (17:55)
[2021-02-15] MEDS: RIVAROXABAN 10 MG TABLET PO SCH (17:55)
[2021-02-15 19:33] LABS: URINE SODIUM, RANDOM 118 mmol/L (40-220)
[2021-02-15 20:34] VITALS: BP_SYST 138
[2021-02-16 00:27] VITALS: BP_SYST 122
[2021-02-16] MEDS: LEVOTHYROXINE SODIUM 0.025 MG TABLET PO SCH (06:08)
[2021-02-16 06:42] LABS: BASOPHILS % (AUTO) 0.2 % (0.0-2.0); HEMATOCRIT 45.5 % (36-48); HEMOGLOBIN 15.4 g/dL (12.0-16.0); LYMPHOCYTES # (AUTO) 0.7 K/uL (1.0-5.5); LYMPHOCYTES % (AUTO) 4.7 % (20.5-51.5); MEAN CORPUSCULAR HEMOGLOBIN 34 pg (27-31); MEAN CORPUSCULAR HGB CONC 34 % (32-36); MEAN CORPUSCULAR VOLUME 99 fL (79.0-98.0); MONOCYTES # (AUTO) 0.9 K/uL (0.0-1.0); MONOCYTES % (AUTO) 6.7 % (1.7-9.3); NEUTROPHILS # (AUTO) 12.3 K/uL (1.8-7.7); NEUTROPHILS % (AUTO) 88.4 % (40.0-70.0); PLATELET COUNT (AUTO) 282 K/uL (130-430); RED BLOOD CELL COUNT(AUTO) 4.58 MIL/uL (4.2-6.2); RED CELL DISTRIBUTION WIDTH 13.4 % (9.0-15.0); WHITE BLOOD COUNT (AUTO) 13.9 K/uL (4.8-10.8)
[2021-02-16 07:05] LABS: INR 1.1 (0.8-1.2); PROTHROMBIN TIME 11.6 SECS (9.5-12.5)
[2021-02-16 07:52] LABS: ANION GAP 10 (5-15); CALCIUM 10.3 mg/dL (8.4-11.0); CHLORIDE 95 mmol/L (98-107); CREATININE 0.93 mg/dL (0.55-1.30); GLUCOSE 137 mg/dL (70-99); POTASSIUM 4.6 mmol/L (3.5-5.1); SODIUM SERUM 134 mmol/L (136-145); UREA NITROGEN, BLOOD 24 mg/dL (8-21)
[2021-02-16 08:10] VITALS: BP_SYST 149
[2021-02-16] MEDS: CALCIUM CARBONATE/VITAMIN D3 1 TAB TABLET PO SCH ×2 (09:00→21:00)
[2021-02-16] MEDS: LACTULOSE 20 GM/30 ML UDC PO SCH (09:00)
[2021-02-16] MEDS: POTASSIUM CHLORIDE 20 MEQ/PKT PACKET PO SCH ×2 (09:00→22:25)
[2021-02-16] MEDS: SIMVASTATIN 20 MG TABLET PO SCH (09:00)
[2021-02-16] MEDS: DILTIAZEM HCL 180 MG CAP.SR.24H PO SCH (09:00)
[2021-02-16] MEDS: OMEGA-3/DHA/EPA/FISH OIL 1 GM CAPSULE PO SCH (09:00)
[2021-02-16] MEDS: SENNOSIDES 8.6 MG TABLET PO SCH ×2 (09:00→22:26)
[2021-02-16] MEDS: MEMANTINE HCL 5 MG TABLET PO SCH ×2 (09:00→21:00)
[2021-02-16] MEDS: SODIUM CHLORIDE 500 MG TABLET PO SCH ×3 (09:00→21:00)
[2021-02-16] MEDS: CARVEDILOL 12.5 MG TABLET (COREG) PO SCH ×2 (09:00→22:23)
[2021-02-16] MEDS: MULTIVITS,CA,MINERALS/IRON/FA 1 TABLET PO SCH ×2 (09:00→21:00)
[2021-02-16] MEDS: GALANTAMINE 16 MG PO SCH (09:00)
[2021-02-16] MEDS ORDERED: GOLYTELY / COLYTE SOLUTION 4 LITERS PO ONE (10:00)
[2021-02-16 11:25] VITALS: BP_SYST 117
[2021-02-16] MEDS: cefTRIAXone 1 GM in D5W 50 ML IV SCH (12:28)
[2021-02-16] MEDS: ONDANSETRON HCL 4 MG/2 ML VIAL IVP PRN ×2 (14:57→23:14)
[2021-02-16] MEDS: NACL 0.9% 1,000 ML IV SCH ×3 (14:58→23:48)
[2021-02-16 15:32] VITALS: BP_SYST 151
[2021-02-16] MEDS: QUEtiapine FUMARATE 25 MG TABLET PO SCH (17:39)
[2021-02-16] MEDS: RIVAROXABAN 10 MG TABLET PO SCH (17:39)
[2021-02-16 18:58] LABS: BASOPHILS % (AUTO) 0.1 % (0.0-2.0); HEMATOCRIT 41.6 % (36-48); LYMPHOCYTES # (AUTO) 0.6 K/uL (1.0-5.5); LYMPHOCYTES % (AUTO) 4.7 % (20.5-51.5); MEAN CORPUSCULAR HEMOGLOBIN 33 pg (27-31); MEAN CORPUSCULAR HGB CONC 34 % (32-36); MEAN CORPUSCULAR VOLUME 100 fL (79.0-98.0); MONOCYTES # (AUTO) 1.2 K/uL (0.0-1.0); MONOCYTES % (AUTO) 9.1 % (1.7-9.3); NEUTROPHILS # (AUTO) 11.9 K/uL (1.8-7.7); NEUTROPHILS % (AUTO) 86.1 % (40.0-70.0); PLATELET COUNT (AUTO) 265 K/uL (130-430); RED BLOOD CELL COUNT(AUTO) 4.17 MIL/uL (4.2-6.2); RED CELL DISTRIBUTION WIDTH 13.5 % (9.0-15.0); WHITE BLOOD COUNT (AUTO) 13.8 K/uL (4.8-10.8)
[2021-02-16 19:17] LABS: ANION GAP 5 (5-15); CALCIUM 9.2 mg/dL (8.4-11.0); CHLORIDE 98 mmol/L (98-107); CREATININE 1.05 mg/dL (0.55-1.30); GLUCOSE 134 mg/dL (70-99); POTASSIUM 4.6 mmol/L (3.5-5.1); SODIUM SERUM 135 mmol/L (136-145); UREA NITROGEN, BLOOD 36 mg/dL (8-21)
[2021-02-16 21:14] VITALS: BP_SYST 130
[2021-02-17 00:55] VITALS: BP_SYST 109
[2021-02-17] MEDS: BACLOFEN 10 MG TABLET PO PRN (01:39)
[2021-02-17] MEDS: NACL 0.9% 1,000 ML IV SCH ×4 (04:53→21:24)
[2021-02-17] MEDS: ONDANSETRON HCL 4 MG/2 ML VIAL IVP PRN (04:54)
[2021-02-17] MEDS: DIPHENHYDRAMINE INJ 50 MG/ML VIAL IVP PRN (04:54)
[2021-02-17 06:15] VITALS: BP_SYST 132
[2021-02-17] MEDS: LEVOTHYROXINE SODIUM 0.025 MG TABLET PO SCH (06:22)
[2021-02-17 07:17] LABS: BILIRUBIN,URINE NEGATIVE (NEGATIVE); BLOOD, URINE 3+ (NEGATIVE); CLARITY/URINE CLOUDY (CLEAR); GLUCOSE,URINE NEGATIVE (NEGATIVE); KETONES,URINE NEGATIVE (NEGATIVE); LEUKOCYTE ESTERASE ,URINE TRACE (NEGATIVE); NITRITE, URINE NEGATIVE (NEGATIVE); PH,URINE 5.5 (5.0-8.0); PROTEIN URINE 1+ (NEGATIVE); UROBILINOGEN,URINE 0.2 (0.2-1.0)
[2021-02-17 07:32] LABS: BASOPHILS % (AUTO) 0.3 % (0.0-2.0); EOSINOPHILS # (AUTO) 0.1 K/uL (0.0-0.4); EOSINOPHILS % (AUTO) 0.7 % (0.0-4.0); HEMATOCRIT 36.6 % (36-48); HEMOGLOBIN 12.2 g/dL (12.0-16.0); LYMPHOCYTES # (AUTO) 0.9 K/uL (1.0-5.5); MEAN CORPUSCULAR HEMOGLOBIN 34 pg (27-31); MEAN CORPUSCULAR HGB CONC 33 % (32-36); MEAN CORPUSCULAR VOLUME 101 fL (79.0-98.0); MONOCYTES # (AUTO) 1.2 K/uL (0.0-1.0); MONOCYTES % (AUTO) 10.2 % (1.7-9.3); NEUTROPHILS # (AUTO) 9.2 K/uL (1.8-7.7); NEUTROPHILS % (AUTO) 80.8 % (40.0-70.0); PLATELET COUNT (AUTO) 227 K/uL (130-430); RED BLOOD CELL COUNT(AUTO) 3.63 MIL/uL (4.2-6.2); RED CELL DISTRIBUTION WIDTH 13.5 % (9.0-15.0); WHITE BLOOD COUNT (AUTO) 11.4 K/uL (4.8-10.8)
[2021-02-17 07:53] LABS: ALANINE AMINOTRANSFERASE 10 U/L (12-78); ALBUMIN 2.3 g/dL (3.4-4.8); ANION GAP 6 (5-15); ASPARTATE AMINOTRANSFERASE 11 U/L (10-37); CALCIUM 8.2 mg/dL (8.4-11.0); CHLORIDE 106 mmol/L (98-107); CREATININE 0.79 mg/dL (0.55-1.30); GLUCOSE 91 mg/dL (70-99); POTASSIUM 3.8 mmol/L (3.5-5.1); SODIUM SERUM 140 mmol/L (136-145); TOTAL BILIRUBIN 0.1 mg/dL (0.0-1.0); UREA NITROGEN, BLOOD 28 mg/dL (8-21)
[2021-02-17] MEDS: LACTULOSE 20 GM/30 ML UDC PO SCH (08:59)
[2021-02-17] MEDS: GALANTAMINE 16 MG PO SCH (09:00)
[2021-02-17] MEDS: MEMANTINE HCL 5 MG TABLET PO SCH ×2 (09:01→21:28)
[2021-02-17] MEDS: CARVEDILOL 12.5 MG TABLET (COREG) PO SCH ×2 (09:01→21:27)
[2021-02-17] MEDS: MULTIVITS,CA,MINERALS/IRON/FA 1 TABLET PO SCH ×2 (09:01→21:28)
[2021-02-17] MEDS: SODIUM CHLORIDE 500 MG TABLET PO SCH ×3 (09:01→21:27)
[2021-02-17] MEDS: SIMVASTATIN 20 MG TABLET PO SCH (09:02)
[2021-02-17] MEDS: DILTIAZEM HCL 180 MG CAP.SR.24H PO SCH (09:02)
[2021-02-17] MEDS: POTASSIUM CHLORIDE 20 MEQ/PKT PACKET PO SCH ×2 (09:02→21:28)
[2021-02-17] MEDS: OMEGA-3/DHA/EPA/FISH OIL 1 GM CAPSULE PO SCH (09:03)
[2021-02-17] MEDS: SENNOSIDES 8.6 MG TABLET PO SCH ×2 (09:03→21:27)
[2021-02-17] MEDS: CALCIUM CARBONATE/VITAMIN D3 1 TAB TABLET PO SCH ×2 (09:04→21:28)
[2021-02-17 09:18] LABS: COLOR,URINE BROWN (YELLOW)
[2021-02-17 09:21] LABS: BACTERIA,URINE RARE /HPF (None Seen); RBC,URINE >100 /HPF (0-3)
[2021-02-17 11:25] VITALS: BP_SYST 127
[2021-02-17] MEDS: cefTRIAXone 1 GM in D5W 50 ML IV SCH (13:14)
[2021-02-17 15:23] VITALS: BP_SYST 116
[2021-02-17] MEDS: QUEtiapine FUMARATE 25 MG TABLET PO SCH (18:22)
[2021-02-17] MEDS: RIVAROXABAN 10 MG TABLET PO SCH (18:23)
[2021-02-17 20:00] VITALS: BP_SYST 131
[2021-02-18 00:26] VITALS: BP_SYST 124
[2021-02-18] MEDS: NACL 0.9% 1,000 ML IV SCH ×5 (02:31→22:41)
[2021-02-18] MEDS: LEVOTHYROXINE SODIUM 0.025 MG TABLET PO SCH (06:35)
[2021-02-18 07:34] LABS: BASOPHILS # (AUTO) 0.1 K/uL (0.0-0.2); BASOPHILS % (AUTO) 0.8 % (0.0-2.0); EOSINOPHILS # (AUTO) 0.2 K/uL (0.0-0.4); EOSINOPHILS % (AUTO) 2.7 % (0.0-4.0); HEMATOCRIT 33.3 % (36-48); HEMOGLOBIN 11.1 g/dL (12.0-16.0); LYMPHOCYTES # (AUTO) 0.9 K/uL (1.0-5.5); LYMPHOCYTES % (AUTO) 12.7 % (20.5-51.5); MEAN CORPUSCULAR HEMOGLOBIN 34 pg (27-31); MEAN CORPUSCULAR HGB CONC 33 % (32-36); MEAN CORPUSCULAR VOLUME 101 fL (79.0-98.0); MONOCYTES # (AUTO) 0.8 K/uL (0.0-1.0); MONOCYTES % (AUTO) 10.3 % (1.7-9.3); NEUTROPHILS # (AUTO) 5.4 K/uL (1.8-7.7); NEUTROPHILS % (AUTO) 73.5 % (40.0-70.0); PLATELET COUNT (AUTO) 191 K/uL (130-430); RED BLOOD CELL COUNT(AUTO) 3.29 MIL/uL (4.2-6.2); RED CELL DISTRIBUTION WIDTH 13.7 % (9.0-15.0); WHITE BLOOD COUNT (AUTO) 7.4 K/uL (4.8-10.8)
[2021-02-18 08:00] VITALS: BP_SYST 123
[2021-02-18 08:09] LABS: ANION GAP 5 (5-15); CALCIUM 8.5 mg/dL (8.4-11.0); CHLORIDE 110 mmol/L (98-107); CREATININE 0.55 mg/dL (0.55-1.30); GLUCOSE 81 mg/dL (70-99); POTASSIUM 4.2 mmol/L (3.5-5.1); SODIUM SERUM 141 mmol/L (136-145); UREA NITROGEN, BLOOD 16 mg/dL (8-21)
[2021-02-18] MEDS: GALANTAMINE 16 MG PO SCH (09:00)
[2021-02-18] MEDS: MEMANTINE HCL 5 MG TABLET PO SCH ×2 (09:03→22:49)
[2021-02-18] MEDS: LACTULOSE 20 GM/30 ML UDC PO SCH (09:03)
[2021-02-18] MEDS: POTASSIUM CHLORIDE 20 MEQ/PKT PACKET PO SCH ×2 (09:03→22:48)
[2021-02-18] MEDS: CALCIUM CARBONATE/VITAMIN D3 1 TAB TABLET PO SCH ×2 (09:03→22:49)
[2021-02-18] MEDS: SENNOSIDES 8.6 MG TABLET PO SCH ×2 (09:03→22:49)
[2021-02-18] MEDS: MULTIVITS,CA,MINERALS/IRON/FA 1 TABLET PO SCH ×2 (09:04→22:50)
[2021-02-18] MEDS: SODIUM CHLORIDE 500 MG TABLET PO SCH ×3 (09:04→22:50)
[2021-02-18] MEDS: SIMVASTATIN 20 MG TABLET PO SCH (09:04)
[2021-02-18] MEDS: CARVEDILOL 12.5 MG TABLET (COREG) PO SCH ×2 (09:04→22:49)
[2021-02-18] MEDS: OMEGA-3/DHA/EPA/FISH OIL 1 GM CAPSULE PO SCH (09:04)
[2021-02-18] MEDS: DILTIAZEM HCL 180 MG CAP.SR.24H PO SCH (09:05)
[2021-02-18] MEDS: cefTRIAXone 1 GM in D5W 50 ML IV SCH (14:45)
[2021-02-18] MEDS: RIVAROXABAN 10 MG TABLET PO SCH (17:03)
[2021-02-18] MEDS: QUEtiapine FUMARATE 25 MG TABLET PO SCH (17:03)
[2021-02-18] MEDS: DIPHENHYDRAMINE INJ 50 MG/ML VIAL IVP PRN (17:36)
[2021-02-18] MEDS ORDERED: MULT-1145 PO (17:37)
[2021-02-18] MEDS ORDERED: SER25 PO (17:37)
[2021-02-18] MEDS ORDERED: RIVA10TA PO (17:37)
[2021-02-18] MEDS ORDERED: SODI1TAB24 PO (17:37)
[2021-02-18] MEDS ORDERED: Lactulose PO (17:37)
[2021-02-18] MEDS ORDERED: LEVO25TA2 PO (17:37)
[2021-02-18] MEDS ORDERED: DILT180C66 PO (17:37)
[2021-02-18] MEDS ORDERED: POTASSIUM CHLOR 20 mEq/Packet PO (17:37)
[2021-02-18 17:52] VITALS: BP_SYST 133
[2021-02-18 20:00] VITALS: BP_SYST 152
[2021-02-18 22:30] VITALS: BP_SYST 147
[2021-02-18] MEDS: BETHANECHOL CHLORIDE 25 MG TABLET (URECHOLINE) PO SCH (22:48)
[2021-02-19 00:16] VITALS: BP_SYST 138
[2021-02-19] MEDS: DIPHENHYDRAMINE INJ 50 MG/ML VIAL IVP PRN (00:51)
[2021-02-19] MEDS: NACL 0.9% 1,000 ML IV SCH ×2 (02:00→06:09)
[2021-02-19] MEDS: LEVOTHYROXINE SODIUM 0.025 MG TABLET PO SCH (06:49)
[2021-02-19 07:48] VITALS: BP_SYST 131
[2021-02-19] MEDS: GALANTAMINE 16 MG PO SCH (09:00)
[2021-02-19] MEDS: LACTULOSE 20 GM/30 ML UDC PO SCH (09:00)
[2021-02-19] MEDS: SIMVASTATIN 20 MG TABLET PO SCH (09:03)
[2021-02-19] MEDS: MEMANTINE HCL 5 MG TABLET PO SCH (09:03)
[2021-02-19] MEDS: POTASSIUM CHLORIDE 20 MEQ/PKT PACKET PO SCH (09:03)
[2021-02-19] MEDS: OMEGA-3/DHA/EPA/FISH OIL 1 GM CAPSULE PO SCH (09:03)
[2021-02-19] MEDS: CARVEDILOL 12.5 MG TABLET (COREG) PO SCH (09:03)
[2021-02-19] MEDS: CALCIUM CARBONATE/VITAMIN D3 1 TAB TABLET PO SCH (09:03)
[2021-02-19] MEDS: SODIUM CHLORIDE 500 MG TABLET PO SCH (09:04)
[2021-02-19] MEDS: SENNOSIDES 8.6 MG TABLET PO SCH (09:04)
[2021-02-19] MEDS: BETHANECHOL CHLORIDE 25 MG TABLET (URECHOLINE) PO SCH (09:04)
[2021-02-19] MEDS: MULTIVITS,CA,MINERALS/IRON/FA 1 TABLET PO SCH (09:04)
[2021-02-19] MEDS: DILTIAZEM HCL 180 MG CAP.SR.24H PO SCH (09:04)
[2021-02-19 11:26] VITALS: BP_SYST 142
[2021-02-19 11:30] VITALS: BP_SYST 135
[2021-02-19] MEDS ORDERED: PANT20TA2 PO (15:18)
== END 2021-02-19 12:20 | disposition home health service (06) | DRG 368 ==
LOC: SED 09:53 → STU 12:19 → SMU 02-13 14:29
PROVIDERS: ADMIT Internal Medicine; ATTEND Internal Medicine
DX: K20.91 Esophagitis, unspecified with bleeding (principal); G93.41 Metabolic encephalopathy; E87.1 Hypo-osmolality and hyponatremia; E44.0 Moderate protein-calorie malnutrition; K56.609 Unspecified intestinal obstruction, unspecified as to partial versus complete obstruction; D62 Acute posthemorrhagic anemia; K57.90 Diverticulosis of intestine, part unspecified, without perforation or abscess without bleeding; E78.5 Hyperlipidemia, unspecified; I10 Essential (primary) hypertension; J44.9 Chronic obstructive pulmonary disease, unspecified; Z20.822 Contact with and (suspected) exposure to COVID-19; F02.80 Dementia in other diseases classified elsewhere, unspecified severity, without behavioral disturbance, psychotic disturbance, mood disturbance, and anxiety; G30.9 Alzheimer's disease, unspecified; R31.29 Other microscopic hematuria; K56.41 Fecal impaction; I70.90 Unspecified atherosclerosis; T45.515A Adverse effect of anticoagulants, initial encounter; Z88.2 Allergy status to sulfonamides; Z88.8 Allergy status to other drugs, medicaments and biological substances; Z79.899 Other long term (current) drug therapy; Z95.0 Presence of cardiac pacemaker; Z95.828 Presence of other vascular implants and grafts; Z86.73 Personal history of transient ischemic attack (TIA), and cerebral infarction without residual deficits; Z68.25 Body mass index [BMI] 25.0-25.9, adult; Z86.718 Personal history of other venous thrombosis and embolism; Z79.01 Long term (current) use of anticoagulants; Y92.89 Other specified places as the place of occurrence of the external cause; R40.2352 Coma scale, best motor response, localizes pain, at arrival to emergency department
CPT/HCPCS: 36415; 71045; 74018; 74220-TC; 74250-TC; 76376; 80048; 80053; 81000; 82533; 82570; 83605; 83735; 83930; 83935; 84302; 84439; 84443; 84550; 84999; 85025; 85610-TC; 87040-TC; 87086; 96365; 97110-GP; 97116-GP; 97530-GP; 99285; G0378; J0696; J1200; J2405; J7060; Q9963

== ENCOUNTER → 2021-06-02 | Emergency (ER) | payer OTHER, MEDICARE ==
[~2021-06-02] VITALS: Ht 154.9 cm; Wt 61.2 kg
[~2021-06-02] MED LIST changes: +DILT180C66 PO; +LEVO25TA2 PO; -LOSA50TA3 PO; +Lactulose PO; +MULT-1145 PO; +PANT20TA2 PO; +POTASSIUM CHLOR 20 mEq/Packet PO; +RIVA10TA PO; +SER25 PO; +SODI1TAB24 PO; +ceFAZolin SODIUM 1 GM VIAL IM ONE
[2021-06-02 13:24] VITALS: BP_SYST 139
[2021-06-02 14:10] LABS: BASOPHILS # (AUTO) 0.1 K/uL (0.0-0.2); BASOPHILS % (AUTO) 0.8 % (0.0-2.0); EOSINOPHILS # (AUTO) 0.2 K/uL (0.0-0.4); HEMATOCRIT 39.4 % (36-48); HEMOGLOBIN 13.5 g/dL (12.0-16.0); MEAN CORPUSCULAR HEMOGLOBIN 33 pg (27-31); MEAN CORPUSCULAR HGB CONC 34 % (32-36); MEAN CORPUSCULAR VOLUME 97 fL (79.0-98.0); MONOCYTES % (AUTO) 11.5 % (1.7-9.3); NEUTROPHILS # (AUTO) 6.3 K/uL (1.8-7.7); NEUTROPHILS % (AUTO) 73.7 % (40.0-70.0); PLATELET COUNT (AUTO) 174 K/uL (130-430); RED BLOOD CELL COUNT(AUTO) 4.06 MIL/uL (4.2-6.2); RED CELL DISTRIBUTION WIDTH 14.4 % (9.0-15.0); WHITE BLOOD COUNT (AUTO) 8.5 K/uL (4.8-10.8)
[2021-06-02 14:21] LABS: ANION GAP 5 (5-15); CALCIUM 8.8 mg/dL (8.4-11.0); CHLORIDE 95 mmol/L (98-107); CREATININE 0.69 mg/dL (0.55-1.30); GLUCOSE 106 mg/dL (70-99); POTASSIUM 4.8 mmol/L (3.5-5.1); SODIUM SERUM 132 mmol/L (136-145); UREA NITROGEN, BLOOD 15 mg/dL (8-21)
[2021-06-02 14:27] LABS: ALANINE AMINOTRANSFERASE 10 U/L (12-78); ALBUMIN 3.1 g/dL (3.4-4.8); ASPARTATE AMINOTRANSFERASE 13 U/L (10-37); TOTAL BILIRUBIN 0.3 mg/dL (0.0-1.0)
[2021-06-02 14:28] LABS: BILIRUBIN,URINE NEGATIVE (NEGATIVE); COLOR,URINE YELLOW (YELLOW); GLUCOSE,URINE NEGATIVE (NEGATIVE); KETONES,URINE NEGATIVE (NEGATIVE); LEUKOCYTE ESTERASE ,URINE 3+ (NEGATIVE); NITRITE, URINE POSITIVE (NEGATIVE); PH,URINE 7.5 (5.0-8.0); PROTEIN URINE NEGATIVE (NEGATIVE); UROBILINOGEN,URINE 0.2 (0.2-1.0)
[2021-06-02 14:31] LABS: BLOOD, URINE TRACE (NEGATIVE); CLARITY/URINE HAZY (CLEAR)
[2021-06-02 14:45] LABS: BACTERIA,URINE MODERATE /HPF (None Seen); MUCUS,URINE 1+ /LPF (None Seen); WBC,URINE 50-80 /HPF (0-3)
[2021-06-02 18:29] VITALS: BP_SYST 149
== END | disposition home or self-care (01) ==
LOC: SED 13:08
DX: N39.0 Urinary tract infection, site not specified (principal); K59.00 Constipation, unspecified; I10 Essential (primary) hypertension; Z88.2 Allergy status to sulfonamides; Z88.8 Allergy status to other drugs, medicaments and biological substances; Z88.5 Allergy status to narcotic agent; Z79.84 Long term (current) use of oral hypoglycemic drugs; Z79.899 Other long term (current) drug therapy
CPT/HCPCS: 36415; 51702; 74021; 80053; 81000; 85025; 87086; 96372; 99284; J0690

== ENCOUNTER 2021-06-11 14:26 | Emergency (ER) | payer OTHER, MEDICARE ==
[~2021-06-11] VITALS: Ht 154.9 cm; Wt 63.5 kg
[~2021-06-11 14:26] MED LIST changes: -ceFAZolin SODIUM 1 GM VIAL IM ONE
--- NOTE | 2021-06-11 14:37 | NUR ---
Patient to ER bed 06 to gown for evaluation. Side rails up.
[2021-06-11 14:38] VITALS: BP_SYST 182
--- NOTE | 2021-06-11 14:40 | NUR ---
Pt brought by daughter via wheelchair,A&Ox1, pt presents to ER with abdominal distention, denies pain, denies N/V/D, skin pink and warm, cap refill <3, pt arrived with folley catheter flowing clear urine,per daughter 600 cc were drained today at doctors office, no bleeding noted, skin pink and warm.
--- NOTE | 2021-06-11 14:42 | NUR ---
Dr Ramon evaluating patient at bedside
[2021-06-11 15:41] VITALS: BP_SYST 160
--- NOTE | 2021-06-11 15:43 | NUR ---
Patient and pt's daughter given written and verbal discharge instructions and verbalizes understanding. ER MD discussed with patient and pt's daughter the results and treatment provided. Patient in stable condition. ID arm band removed. No Rx given. Patient and pt's daughter educated on pain management and to follow up with PMD. Pain Scale . Opportunity for questions provided and answered. Medication side effect fact sheet provided.
== END 2021-06-11 15:43 | disposition home or self-care (01) ==
LOC: SED 14:26
DX: K59.09 Other constipation (principal); R14.0 Abdominal distension (gaseous); I10 Essential (primary) hypertension; Z88.2 Allergy status to sulfonamides; Z88.5 Allergy status to narcotic agent; Z79.899 Other long term (current) drug therapy
CPT/HCPCS: 74018; 99283

== ENCOUNTER 2021-07-06 04:36 | Inpatient (IN) | payer OTHER, MEDICARE, SELFPAY ==
[~2021-07-06] VITALS: Ht 154.9 cm; Wt 59.4 kg
[2021-07-06 04:40] VITALS: BP_SYST 107; BP_SYST 163
[2021-07-06] MEDS ORDERED: NACL 0.9% 1,000 ML IV ONE ×3 (05:00→06:30)
[2021-07-06] MEDS ORDERED: cefTRIAXone 1 GM IVPB PREMIX 50 ML IV ONE (05:45)
[2021-07-06 05:56] LABS: HEMOGLOBIN 14.7 g/dL (12.0-16.0); RED BLOOD CELL COUNT(AUTO) 4.48 MIL/uL (4.2-6.2)
[2021-07-06 06:06] LABS: BASOPHILS % (AUTO) 0.2 % (0.0-2.0); EOSINOPHILS % (AUTO) 0.1 % (0.0-4.0); HEMATOCRIT 43.6 % (36-48); LYMPHOCYTES # (AUTO) 0.6 K/uL (1.0-5.5); LYMPHOCYTES % (AUTO) 4.7 % (20.5-51.5); MEAN CORPUSCULAR HEMOGLOBIN 33 pg (27-31); MEAN CORPUSCULAR HGB CONC 34 % (32-36); MEAN CORPUSCULAR VOLUME 97 fL (79.0-98.0); MONOCYTES % (AUTO) 7.8 % (1.7-9.3); NEUTROPHILS # (AUTO) 11.2 K/uL (1.8-7.7); NEUTROPHILS % (AUTO) 87.2 % (40.0-70.0); PLATELET COUNT (AUTO) 185 K/uL (130-430); RED CELL DISTRIBUTION WIDTH 14.3 % (9.0-15.0); WHITE BLOOD COUNT (AUTO) 12.9 K/uL (4.8-10.8)
[2021-07-06 06:26] LABS: ANION GAP 6 (5-15); CHLORIDE 97 mmol/L (98-107); CREATININE 0.98 mg/dL (0.55-1.30); GLUCOSE 114 mg/dL (70-99); POTASSIUM 4.3 mmol/L (3.5-5.1); SODIUM SERUM 131 mmol/L (136-145); UREA NITROGEN, BLOOD 20 mg/dL (8-21)
[2021-07-06 06:31] LABS: ALANINE AMINOTRANSFERASE 19 U/L (12-78); ALBUMIN 3.6 g/dL (3.4-4.8); ASPARTATE AMINOTRANSFERASE 19 U/L (10-37); TOTAL BILIRUBIN 0.8 mg/dL (0.0-1.0)
[2021-07-06 07:12] LABS: BILIRUBIN,URINE NEGATIVE (NEGATIVE); BLOOD, URINE 2+ (NEGATIVE); CLARITY/URINE CLOUDY (CLEAR); COLOR,URINE YELLOW (YELLOW); GLUCOSE,URINE NEGATIVE (NEGATIVE); KETONES,URINE NEGATIVE (NEGATIVE); LEUKOCYTE ESTERASE ,URINE 3+ (NEGATIVE); NITRITE, URINE POSITIVE (NEGATIVE); PROTEIN URINE 1+ (NEGATIVE)
[2021-07-06 07:13] LABS: UROBILINOGEN,URINE 0.2 (0.2-1.0)
[2021-07-06 07:14] LABS: BACTERIA,URINE MANY /HPF (None Seen); MUCUS,URINE 1+ /LPF (None Seen); RBC,URINE 20-50 /HPF (0-3); WBC,URINE >100 /HPF (0-3)
[2021-07-06 09:15] VITALS: BP_SYST 119
[2021-07-06] MEDS ORDERED: DIPHENHYDRAMINE INJ 50 MG/ML VIAL IVP ONE (11:15)
[2021-07-06] MEDS ORDERED: HALOPERIDOL LACTATE 5 MG/ML VIAL IM ONE (11:15)
[2021-07-06 12:00] VITALS: BP_SYST 119
[2021-07-06] MEDS ORDERED: LEVOFLOXACIN IN DEXTROSE 5 % 100 ML IV ONE (12:00)
[2021-07-06] MEDS ORDERED: LACTULOSE 20 GM/30 ML UDC PO ONE (12:15)
[2021-07-06] MEDS ORDERED: DOCUSATE SODIUM 250 MG CAPSULE PO ONE (12:15)
[2021-07-06] MEDS: NACL 0.9% 1,000 ML IV SCH (12:39)
[2021-07-06] MEDS ORDERED: NON-FORMULARY MEDICATION (Pantoprazole (Protonix) 20 MG) PO SCH (17:00)
[2021-07-06] MEDS: GALANTAMINE HYDROBROMIDE 4 MG TABLET PO SCH ×2 (18:03→20:39)
[2021-07-06] MEDS: QUEtiapine FUMARATE 25 MG TABLET PO SCH (18:03)
[2021-07-06] MEDS: RIVAROXABAN 10 MG TABLET PO SCH (18:04)
[2021-07-06 18:30] VITALS: BP_SYST 118
[2021-07-06 20:00] VITALS: BP_SYST 129
[2021-07-06] MEDS: SENNOSIDES 8.6 MG TABLET PO SCH (20:38)
[2021-07-06] MEDS: POTASSIUM CHLORIDE 20 MEQ/PKT PACKET PO SCH (20:38)
[2021-07-06] MEDS: LACTULOSE 20 GM/30 ML UDC PO SCH (20:38)
[2021-07-06] MEDS: MULTIVITS,CA,MINERALS/IRON/FA 1 TABLET PO SCH (20:39)
[2021-07-06] MEDS: MEMANTINE HCL 5 MG TABLET PO SCH (20:39)
[2021-07-06] MEDS: DOCUSATE SODIUM 250 MG CAPSULE PO SCH (20:39)
[2021-07-06] MEDS: CARVEDILOL 12.5 MG TABLET (COREG) PO SCH (20:49)
[2021-07-07 00:26] VITALS: BP_SYST 113
[2021-07-07] MEDS: NACL 0.9% 1,000 ML IV SCH ×2 (05:30→13:53)
[2021-07-07] MEDS: LEVOTHYROXINE SODIUM 0.025 MG TABLET PO SCH (06:33)
[2021-07-07] MEDS: PANTOPRAZOLE SODIUM 40 MG TAB PO SCH (06:34)
[2021-07-07 06:57] LABS: ANION GAP 8 (5-15); CALCIUM 9.2 mg/dL (8.4-11.0); CHLORIDE 99 mmol/L (98-107); CREATININE 0.64 mg/dL (0.55-1.30); FREE T4 (FREE THYROXINE) 1.2 ng/dl (0.8-1.5); GLUCOSE 91 mg/dL (70-99); POTASSIUM 3.8 mmol/L (3.5-5.1); SODIUM SERUM 134 mmol/L (136-145); THYROID STIMULATING HORMONE 1.17 uIu/mL (0.36-3.74); UREA NITROGEN, BLOOD 12 mg/dL (8-21)
[2021-07-07 07:55] LABS: BASOPHILS % (AUTO) 0.3 % (0.0-2.0); EOSINOPHILS # (AUTO) 0.2 K/uL (0.0-0.4); EOSINOPHILS % (AUTO) 1.7 % (0.0-4.0); HEMATOCRIT 35.9 % (36-48); LYMPHOCYTES % (AUTO) 10.8 % (20.5-51.5); MEAN CORPUSCULAR HEMOGLOBIN 33 pg (27-31); MEAN CORPUSCULAR HGB CONC 34 % (32-36); MEAN CORPUSCULAR VOLUME 98 fL (79.0-98.0); MONOCYTES % (AUTO) 11.1 % (1.7-9.3); NEUTROPHILS # (AUTO) 6.9 K/uL (1.8-7.7); NEUTROPHILS % (AUTO) 76.1 % (40.0-70.0); PLATELET COUNT (AUTO) 150 K/uL (130-430); RED BLOOD CELL COUNT(AUTO) 3.65 MIL/uL (4.2-6.2); RED CELL DISTRIBUTION WIDTH 14.6 % (9.0-15.0); WHITE BLOOD COUNT (AUTO) 9.1 K/uL (4.8-10.8)
[2021-07-07 08:00] VITALS: BP_SYST 128
[2021-07-07] MEDS: LEVOFLOXACIN 250 MG/D5W 50 ML IV SCH (08:59)
[2021-07-07] MEDS: DOCUSATE SODIUM 250 MG CAPSULE PO SCH ×2 (09:00→20:25)
[2021-07-07] MEDS: OMEGA-3/DHA/EPA/FISH OIL 1 GM CAPSULE PO SCH (09:00)
[2021-07-07] MEDS ORDERED: GALANTAMINE HBR PO SCH (09:00)
[2021-07-07] MEDS ORDERED: LACTULOSE PO SCH (09:00)
[2021-07-07] MEDS: LACTULOSE 20 GM/30 ML UDC PO SCH ×2 (09:00→20:24)
[2021-07-07] MEDS: GALANTAMINE HYDROBROMIDE 4 MG TABLET PO SCH ×3 (09:17→20:26)
[2021-07-07] MEDS: POTASSIUM CHLORIDE 20 MEQ/PKT PACKET PO SCH ×2 (09:17→20:25)
[2021-07-07] MEDS: DILTIAZEM HCL 180 MG CAP.SR.24H PO SCH (09:17)
[2021-07-07] MEDS: MEMANTINE HCL 5 MG TABLET PO SCH ×2 (09:17→20:25)
[2021-07-07] MEDS: CARVEDILOL 12.5 MG TABLET (COREG) PO SCH ×2 (09:18→20:27)
[2021-07-07] MEDS: SENNOSIDES 8.6 MG TABLET PO SCH ×2 (09:18→20:25)
[2021-07-07] MEDS: MULTIVITS,CA,MINERALS/IRON/FA 1 TABLET PO SCH ×2 (09:18→20:25)
[2021-07-07 11:40] VITALS: BP_SYST 117
[2021-07-07 16:33] VITALS: BP_SYST 121
[2021-07-07] MEDS: QUEtiapine FUMARATE 25 MG TABLET PO SCH (17:58)
[2021-07-07] MEDS: RIVAROXABAN 10 MG TABLET PO SCH (17:59)
[2021-07-07 20:30] VITALS: BP_SYST 105
[2021-07-07] MEDS ORDERED: SIMVASTATIN 20 MG TABLET PO SCH (21:00)
[2021-07-08 01:51] VITALS: BP_SYST 115
[2021-07-08] MEDS: NACL 0.9% 1,000 ML IV SCH ×2 (03:07→14:39)
[2021-07-08] MEDS: LEVOTHYROXINE SODIUM 0.025 MG TABLET PO SCH (06:29)
[2021-07-08] MEDS: PANTOPRAZOLE SODIUM 40 MG TAB PO SCH (06:29)
[2021-07-08 08:00] VITALS: BP_SYST 130
[2021-07-08] MEDS: OMEGA-3/DHA/EPA/FISH OIL 1 GM CAPSULE PO SCH (09:00)
[2021-07-08] MEDS: DOCUSATE SODIUM 250 MG CAPSULE PO SCH (09:00)
[2021-07-08] MEDS: LEVOFLOXACIN 250 MG/D5W 50 ML IV SCH (10:13)
[2021-07-08] MEDS: LACTULOSE 20 GM/30 ML UDC PO SCH (10:41)
[2021-07-08] MEDS: POTASSIUM CHLORIDE 20 MEQ/PKT PACKET PO SCH (10:41)
[2021-07-08] MEDS: MULTIVITS,CA,MINERALS/IRON/FA 1 TABLET PO SCH (10:42)
[2021-07-08] MEDS: DILTIAZEM HCL 180 MG CAP.SR.24H PO SCH (10:42)
[2021-07-08] MEDS: SENNOSIDES 8.6 MG TABLET PO SCH (10:42)
[2021-07-08] MEDS: MEMANTINE HCL 5 MG TABLET PO SCH (10:42)
[2021-07-08] MEDS: CARVEDILOL 12.5 MG TABLET (COREG) PO SCH (10:43)
[2021-07-08] MEDS: GALANTAMINE HYDROBROMIDE 4 MG TABLET PO SCH ×2 (10:43→14:39)
[2021-07-08] MEDS ORDERED: cefTRIAXone 1 GM in D5W 50 ML IV SCH (11:00)
[2021-07-08 11:25] VITALS: BP_SYST 120
[2021-07-08 15:28] VITALS: BP_SYST 126
[2021-07-08 15:37] VITALS: BP_SYST 126
== END 2021-07-08 17:00 | disposition home health service (06) | DRG 690 ==
LOC: SED 04:36 → SMU 05:42
PROVIDERS: ADMIT Internal Medicine; ATTEND Internal Medicine
DX: N30.00 Acute cystitis without hematuria (principal); E87.1 Hypo-osmolality and hyponatremia; K21.00 Gastro-esophageal reflux disease with esophagitis, without bleeding; E78.5 Hyperlipidemia, unspecified; F03.90 Unspecified dementia, unspecified severity, without behavioral disturbance, psychotic disturbance, mood disturbance, and anxiety; K57.90 Diverticulosis of intestine, part unspecified, without perforation or abscess without bleeding; I70.90 Unspecified atherosclerosis; R13.10 Dysphagia, unspecified; K56.41 Fecal impaction; R33.9 Retention of urine, unspecified; Z20.822 Contact with and (suspected) exposure to COVID-19; Z88.8 Allergy status to other drugs, medicaments and biological substances; Z88.5 Allergy status to narcotic agent; Z91.013 Allergy to seafood; Z79.899 Other long term (current) drug therapy
CPT/HCPCS: 36415; 71045; 76376; 80048; 80053; 81000; 83605; 84439; 84443; 85025; 87040; 87086; 96374; 97116-GP; 97530-GP; 99285; J0696; J1200; J1630; J1956; J7060

== ENCOUNTER 2021-08-09 13:02 | Outpatient (CLI) | payer OTHER, MEDICARE ==
[2021-08-09 13:21] LABS: BASOPHILS % (AUTO) 0.7 % (0.0-2.0); EOSINOPHILS # (AUTO) 0.1 K/uL (0.0-0.4); EOSINOPHILS % (AUTO) 1.9 % (0.0-4.0); HEMATOCRIT 40.5 % (36-48); HEMOGLOBIN 13.6 g/dL (12.0-16.0); LYMPHOCYTES # (AUTO) 0.9 K/uL (1.0-5.5); LYMPHOCYTES % (AUTO) 13.6 % (20.5-51.5); MEAN CORPUSCULAR HEMOGLOBIN 33 pg (27-31); MEAN CORPUSCULAR HGB CONC 34 % (32-36); MEAN CORPUSCULAR VOLUME 99 fL (79.0-98.0); MONOCYTES # (AUTO) 0.7 K/uL (0.0-1.0); MONOCYTES % (AUTO) 10.6 % (1.7-9.3); NEUTROPHILS % (AUTO) 73.2 % (40.0-70.0); PLATELET COUNT (AUTO) 173 K/uL (130-430); RED BLOOD CELL COUNT(AUTO) 4.11 MIL/uL (4.2-6.2); RED CELL DISTRIBUTION WIDTH 14.4 % (9.0-15.0); WHITE BLOOD COUNT (AUTO) 6.8 K/uL (4.8-10.8)
[2021-08-09 13:25] LABS: ANION GAP 4 (5-15); CALCIUM 9.7 mg/dL (8.4-11.0); CHLORIDE 100 mmol/L (98-107); CREATININE 0.72 mg/dL (0.55-1.30); GLUCOSE 88 mg/dL (70-99); POTASSIUM 4.4 mmol/L (3.5-5.1); SODIUM SERUM 132 mmol/L (136-145); UREA NITROGEN, BLOOD 19 mg/dL (8-21)
== END 2021-08-09 15:02 | disposition home or self-care (01) ==
LOC: SLB 13:02
PROVIDERS: ATTEND Internal Medicine
DX: I10 Essential (primary) hypertension (principal); R33.9 Retention of urine, unspecified; F02.81 Dementia in other diseases classified elsewhere, unspecified severity, with behavioral disturbance; I82.409 Acute embolism and thrombosis of unspecified deep veins of unspecified lower extremity
CPT/HCPCS: 36415; 80048; 85025

== ENCOUNTER 2022-10-19 16:32 | Emergency (ER) | payer OTHER, MEDICARE ==
[~2022-10-19] VITALS: Ht 154.9 cm; Wt 59.0 kg
[2022-10-19 16:32] VITALS: BP_SYST 186
[2022-10-19 17:14] LABS: BILIRUBIN,URINE NEGATIVE (NEGATIVE); BLOOD, URINE NEGATIVE (NEGATIVE); COLOR,URINE YELLOW (YELLOW); GLUCOSE,URINE NEGATIVE (NEGATIVE); KETONES,URINE NEGATIVE (NEGATIVE); LEUKOCYTE ESTERASE ,URINE 1+ (NEGATIVE); NITRITE, URINE POSITIVE (NEGATIVE); PH,URINE 7.5 (5.0-8.0); PROTEIN URINE NEGATIVE (NEGATIVE); UROBILINOGEN,URINE 0.2 (0.2-1.0)
[2022-10-19 17:30] LABS: CLARITY/URINE SLIGHTLY HAZY (CLEAR)
[2022-10-19 17:53] LABS: BACTERIA,URINE MANY /HPF (None Seen); RBC,URINE 0-3 /HPF (0-3)
[2022-10-19 17:59] LABS: MUCUS,URINE None Seen /LPF (None Seen)
[2022-10-19] MEDS ORDERED: cefTRIAXone 1 GM VIAL IM ONE (18:15)
[2022-10-19] MEDS ORDERED: LEVO-62 PO (18:31)
== END 2022-10-19 18:59 | disposition home or self-care (01) ==
LOC: SED 16:32
DX: Z46.6 Encounter for fitting and adjustment of urinary device (principal); N39.0 Urinary tract infection, site not specified; E78.5 Hyperlipidemia, unspecified; I10 Essential (primary) hypertension; Z88.2 Allergy status to sulfonamides; Z88.6 Allergy status to analgesic agent; Z79.899 Other long term (current) drug therapy
CPT/HCPCS: 99284; 81000; 87086; 51702; 96372; J0696

== ENCOUNTER 2023-02-17 11:07 | Outpatient (CLI) | payer OTHER, MEDICARE ==
[~2023-02-17 11:07] MED LIST changes: +LEVO-62 PO
[2023-02-17 11:33] LABS: BASOPHILS # (AUTO) 0.1 K/uL (0.0-0.2); BASOPHILS % (AUTO) 0.8 % (0.0-2.0); EOSINOPHILS # (AUTO) 0.1 K/uL (0.0-0.4); EOSINOPHILS % (AUTO) 1.8 % (0.0-4.0); HEMATOCRIT 43.4 % (36-48); HEMOGLOBIN 14.2 g/dL (12.0-16.0); LYMPHOCYTES # (AUTO) 0.9 K/uL (1.0-5.5); LYMPHOCYTES % (AUTO) 12.9 % (20.5-51.5); MEAN CORPUSCULAR HEMOGLOBIN 33 pg (27-31); MEAN CORPUSCULAR HGB CONC 33 % (32-36); MEAN CORPUSCULAR VOLUME 100 fL (79.0-98.0); MONOCYTES # (AUTO) 0.7 K/uL (0.0-1.0); MONOCYTES % (AUTO) 10.8 % (1.7-9.3); NEUTROPHILS # (AUTO) 5.1 K/uL (1.8-7.7); NEUTROPHILS % (AUTO) 73.7 % (40.0-70.0); PLATELET COUNT (AUTO) 249 K/uL (130-430); RED BLOOD CELL COUNT(AUTO) 4.35 MIL/uL (4.2-6.2); RED CELL DISTRIBUTION WIDTH 13.8 % (9.0-15.0)
[2023-02-17 11:52] LABS: ALANINE AMINOTRANSFERASE 19 U/L (12-78); ANION GAP 2 (5-15); ASPARTATE AMINOTRANSFERASE 14 U/L (10-37); CALCIUM 9.3 mg/dL (8.4-11.0); CARBON DIOXIDE 33 mmol/L (23-29); CHLORIDE 96 mmol/L (98-107); CREATININE 0.72 mg/dL (0.55-1.30); GLUCOSE 105 mg/dL (74-106); SODIUM SERUM 131 mmol/L (136-145); TOTAL BILIRUBIN 0.3 mg/dL (0.0-1.0); TOTAL PROTEIN, SERUM 6.9 g/dL (6.4-8.3); UREA NITROGEN, BLOOD 14 mg/dL (8-21)
== END 2023-02-17 19:25 | disposition home or self-care (01) ==
LOC: SLB 11:07
PROVIDERS: ATTEND Internal Medicine
DX: E87.1 Hypo-osmolality and hyponatremia (principal); R53.83 Other fatigue
CPT/HCPCS: 36415; 80053; 85025

== ENCOUNTER 2023-04-14 11:33 | Inpatient (IN) | payer OTHER, MEDICARE ==
[~2023-04-14] VITALS: Ht 154.9 cm; Wt 61.2 kg
[2023-04-14 11:35] VITALS: BP_SYST 157; PULSE 77; RESP 20; O2SAT 95
[2023-04-14] MEDS ORDERED: SODI1TAB3 PO (12:12)
[2023-04-14] MEDS ORDERED: MULT-976 PO (12:12)
[2023-04-14] MEDS ORDERED: ACET325T53 PO (12:12)
[2023-04-14] MEDS ORDERED: POLY17PO4 PO (12:12)
[2023-04-14] MEDS ORDERED: RIVA20TA PO (12:12)
[2023-04-14] MEDS ORDERED: LACT10SO7 PO (12:12)
[2023-04-14] MEDS ORDERED: CRAN450T9 PO (12:12)
[2023-04-14] MEDS ORDERED: AMLO5TAB4 PO (12:12)
[2023-04-14] MEDS ORDERED: DOCU250C14 PO (12:12)
[2023-04-14 12:22] LABS: BASOPHILS # (AUTO) 0.1 K/uL (0.0-0.2); BASOPHILS % (AUTO) 0.8 % (0.0-2.0); EOSINOPHILS # (AUTO) 0.2 K/uL (0.0-0.4); EOSINOPHILS % (AUTO) 2.3 % (0.0-4.0); HEMATOCRIT 43.3 % (36-48); HEMOGLOBIN 14.1 g/dL (12.0-16.0); LYMPHOCYTES # (AUTO) 0.5 K/uL (1.0-5.5); LYMPHOCYTES % (AUTO) 7.3 % (20.5-51.5); MEAN CORPUSCULAR HEMOGLOBIN 33 pg (27-31); MEAN CORPUSCULAR HGB CONC 33 % (32-36); MEAN CORPUSCULAR VOLUME 100 fL (79.0-98.0); MONOCYTES # (AUTO) 0.7 K/uL (0.0-1.0); MONOCYTES % (AUTO) 9.3 % (1.7-9.3); NEUTROPHILS # (AUTO) 5.8 K/uL (1.8-7.7); NEUTROPHILS % (AUTO) 80.3 % (40.0-70.0); PLATELET COUNT (AUTO) 165 K/uL (130-430); RED BLOOD CELL COUNT(AUTO) 4.35 MIL/uL (4.2-6.2); RED CELL DISTRIBUTION WIDTH 13.8 % (9.0-15.0); WHITE BLOOD COUNT (AUTO) 7.2 K/uL (4.8-10.8)
[2023-04-14 12:26] LABS: BILIRUBIN,URINE NEGATIVE (NEGATIVE); BLOOD, URINE NEGATIVE (NEGATIVE); CLARITY/URINE CLEAR (CLEAR); COLOR,URINE YELLOW (YELLOW); GLUCOSE,URINE NEGATIVE (NEGATIVE); KETONES,URINE NEGATIVE (NEGATIVE); LEUKOCYTE ESTERASE ,URINE 1+ (NEGATIVE); NITRITE, URINE POSITIVE (NEGATIVE); PH,URINE 7.5 (5.0-8.0); PROTEIN URINE NEGATIVE (NEGATIVE); UROBILINOGEN,URINE 0.2 (0.2-1.0)
[2023-04-14 12:35] LABS: ANION GAP 5 (5-15); CALCIUM 8.3 mg/dL (8.4-11.0); CARBON DIOXIDE 30 mmol/L (23-29); CHLORIDE 98 mmol/L (98-107); CREATININE 0.66 mg/dL (0.55-1.30); GLUCOSE 127 mg/dL (74-106); SODIUM SERUM 133 mmol/L (136-145); UREA NITROGEN, BLOOD 10 mg/dL (8-21)
[2023-04-14 12:40] LABS: ALANINE AMINOTRANSFERASE 13 U/L (12-78); ALBUMIN 2.9 g/dL (3.4-4.8); ASPARTATE AMINOTRANSFERASE 18 U/L (10-37); BILIRUBIN,DIRECT 0.1 mg/dL (0.0-0.3); TOTAL BILIRUBIN 0.4 mg/dL (0.0-1.0); TOTAL PROTEIN, SERUM 6.8 g/dL (6.4-8.3)
[2023-04-14 12:53] LABS: RBC,URINE 0-3 /HPF (0-3); WBC,URINE 0-3 /HPF (0-3)
[2023-04-14 12:54] LABS: BACTERIA,URINE MODERATE /HPF (None Seen)
[2023-04-14 12:55] LABS: URINE AMORPHOUS PHOSPHATES 2+ /HPF (None Seen)
[2023-04-14] MEDS ORDERED: cefTRIAXone 1 GM IVPB PREMIX 50 ML IV ONE (14:15)
[2023-04-14] MEDS ORDERED: ONDANSETRON HCL 4 MG/2 ML VIAL IVP PRN (16:15)
[2023-04-14] MEDS ORDERED: BACLOFEN 10 MG TABLET PO SCH (16:15)
[2023-04-14] MEDS ORDERED: ACETAMINOPHEN 325 MG TABLET PO PRN ×2 (16:15)
[2023-04-14] MEDS: NACL 0.9% 1,000 ML IV SCH (16:50)
[2023-04-14] MEDS ORDERED: RIVAROXABAN 10 MG TABLET PO SCH (18:00)
[2023-04-14] MEDS ORDERED: MEMA10TA56 PO (20:18)
[2023-04-14] MEDS ORDERED: MAGN400T10 PO (20:18)
[2023-04-14] MEDS ORDERED: AMLO5TAB92 PO (20:18)
[2023-04-14] MEDS ORDERED: QUET25TA36 PO (20:18)
[2023-04-14] MEDS ORDERED: LEVO25TA7 PO (20:18)
[2023-04-14] MEDS ORDERED: TRIA15CR4 TP (20:18)
[2023-04-14] MEDS: CALCIUM CARBONATE/VITAMIN D3 1 TAB TABLET PO SCH (21:00)
[2023-04-14] MEDS ORDERED: PANTOPRAZOLE SODIUM 40 MG/VIAL (PROTONIX) IVP ONE ×3 (21:30→23:00)
[2023-04-14] MEDS ORDERED: BISACODYL 10 MG/SUPPOSITORY RC SCH (22:30)
[2023-04-14] MEDS ORDERED: SODIUM PHOSPHATE,MONO-DIBASIC 133 ML ENEMA RC ONE (22:30)
[2023-04-14] MEDS: MULTIVITS,CA,MINERALS/IRON/FA 1 TABLET PO SCH (22:36)
[2023-04-14] MEDS: DOCUSATE SODIUM 250 MG CAPSULE PO SCH (22:36)
[2023-04-14] MEDS: CARVEDILOL 12.5 MG TABLET (COREG) PO SCH (22:37)
[2023-04-14] MEDS: SODIUM CHLORIDE 1,000 MG TABLET PO SCH (22:38)
[2023-04-14] MEDS: SENNOSIDES 8.6 MG TABLET PO SCH (22:38)
[2023-04-14] MEDS: MEMANTINE HCL 5 MG TABLET PO SCH (22:38)
[2023-04-14] MEDS: QUEtiapine FUMARATE 25 MG TABLET PO SCH (22:43)
[2023-04-14] MEDS ORDERED: hydrALAZINE HCL 20 MG/ML VIAL IVP PRN (22:45)
[2023-04-14 22:55] VITALS: BP_SYST 157; PULSE 93; RESP 20; TEMP 100
[2023-04-14 22:59] LABS: BASOPHILS % (AUTO) 0.3 % (0.0-2.0); EOSINOPHILS # (AUTO) 0.1 K/uL (0.0-0.4); EOSINOPHILS % (AUTO) 0.7 % (0.0-4.0); HEMATOCRIT 43.2 % (36-48); HEMOGLOBIN 14.9 g/dL (12.0-16.0); LYMPHOCYTES # (AUTO) 0.3 K/uL (1.0-5.5); LYMPHOCYTES % (AUTO) 3.3 % (20.5-51.5); MEAN CORPUSCULAR HEMOGLOBIN 34 pg (27-31); MEAN CORPUSCULAR HGB CONC 34 % (32-36); MEAN CORPUSCULAR VOLUME 99 fL (79.0-98.0); MONOCYTES # (AUTO) 0.8 K/uL (0.0-1.0); MONOCYTES % (AUTO) 8.7 % (1.7-9.3); NEUTROPHILS # (AUTO) 8.4 K/uL (1.8-7.7); PLATELET COUNT (AUTO) 145 K/uL (130-430); RED BLOOD CELL COUNT(AUTO) 4.39 MIL/uL (4.2-6.2); RED CELL DISTRIBUTION WIDTH 13.6 % (9.0-15.0); WHITE BLOOD COUNT (AUTO) 9.7 K/uL (4.8-10.8)
[2023-04-14 23:28] VITALS: O2SAT 93
[2023-04-14 23:42] LABS: INR 1.2 (0.8-1.2); PROTHROMBIN TIME 12.4 SECS (9.5-12.5)
[2023-04-15 05:01] LABS: BASOPHILS % (AUTO) 0.4 % (0.0-2.0); EOSINOPHILS % (AUTO) 0.2 % (0.0-4.0); HEMATOCRIT 40.8 % (36-48); HEMOGLOBIN 13.8 g/dL (12.0-16.0); LYMPHOCYTES # (AUTO) 0.4 K/uL (1.0-5.5); LYMPHOCYTES % (AUTO) 4.8 % (20.5-51.5); MEAN CORPUSCULAR HEMOGLOBIN 34 pg (27-31); MEAN CORPUSCULAR HGB CONC 34 % (32-36); MEAN CORPUSCULAR VOLUME 99 fL (79.0-98.0); MONOCYTES % (AUTO) 11.8 % (1.7-9.3); NEUTROPHILS # (AUTO) 6.8 K/uL (1.8-7.7); NEUTROPHILS % (AUTO) 82.8 % (40.0-70.0); PLATELET COUNT (AUTO) 143 K/uL (130-430); RED BLOOD CELL COUNT(AUTO) 4.12 MIL/uL (4.2-6.2); RED CELL DISTRIBUTION WIDTH 13.5 % (9.0-15.0); WHITE BLOOD COUNT (AUTO) 8.2 K/uL (4.8-10.8)
[2023-04-15 05:46] LABS: ALANINE AMINOTRANSFERASE 15 U/L (12-78); ALBUMIN 2.8 g/dL (3.4-4.8); ANION GAP 7 (5-15); ASPARTATE AMINOTRANSFERASE 23 U/L (10-37); CALCIUM 8.6 mg/dL (8.4-11.0); CARBON DIOXIDE 28 mmol/L (23-29); CHLORIDE 97 mmol/L (98-107); CREATININE 0.71 mg/dL (0.55-1.30); FREE T4 (FREE THYROXINE) 1.1 ng/dl (0.8-1.5); GLUCOSE 104 mg/dL (74-106); SODIUM SERUM 132 mmol/L (136-145); THYROID STIMULATING HORMONE 3.81 uIu/mL (0.36-3.74); TOTAL BILIRUBIN 0.4 mg/dL (0.0-1.0); TOTAL PROTEIN, SERUM 6.7 g/dL (6.4-8.3); UREA NITROGEN, BLOOD 9 mg/dL (8-21)
[2023-04-15] MEDS: LEVOTHYROXINE SODIUM 0.025 MG TABLET PO SCH (07:05)
[2023-04-15 07:08] LABS: CHOLESTEROL 113 mg/dL (<200); HDL CHOLESTEROL 60 mg/dL (>55); TRIGLYCERIDES 32 mg/dL (30-150)
[2023-04-15 08:26] VITALS: BP_SYST 120; PULSE 78; RESP 28; TEMP 96.8; O2SAT 92
[2023-04-15] MEDS ORDERED: PANTOPRAZOLE SODIUM 40 MG TAB PO SCH (09:00)
[2023-04-15] MEDS: CARVEDILOL 12.5 MG TABLET (COREG) PO SCH ×2 (09:16→21:00)
[2023-04-15] MEDS: SENNOSIDES 8.6 MG TABLET PO SCH ×2 (09:16→21:00)
[2023-04-15] MEDS: DOCUSATE SODIUM 250 MG CAPSULE PO SCH ×2 (09:16→21:00)
[2023-04-15] MEDS: CALCIUM CARBONATE/VITAMIN D3 1 TAB TABLET PO SCH ×2 (09:17→21:00)
[2023-04-15] MEDS: amLODIPine BESYLATE 5 MG TABLET PO SCH (09:17)
[2023-04-15] MEDS: PANTOPRAZOLE SODIUM 40 MG TAB PO SCH ×2 (09:17→21:00)
[2023-04-15] MEDS: MEMANTINE HCL 5 MG TABLET PO SCH ×2 (09:18→21:00)
[2023-04-15] MEDS: POLYETHYLENE GLYCOL 3350, 17 GM/ POWD.PACK PO SCH (09:18)
[2023-04-15] MEDS: MULTIVITS,CA,MINERALS/IRON/FA 1 TABLET PO SCH ×2 (09:33→21:00)
[2023-04-15] MEDS: SODIUM CHLORIDE 1,000 MG TABLET PO SCH ×2 (09:33→21:00)
[2023-04-15] MEDS: SIMVASTATIN 20 MG TABLET PO SCH (09:33)
[2023-04-15] MEDS: DILTIAZEM HCL 180 MG CAP.SR.24H PO SCH (09:41)
[2023-04-15] MEDS ORDERED: MINERAL OIL 30 ML UDC PO ONE (10:00)
[2023-04-15] MEDS: NACL 0.9% 1,000 ML IV SCH (12:44)
[2023-04-15 12:46] VITALS: BP_SYST 115; PULSE 76; RESP 20; TEMP 98.2; O2SAT 91
[2023-04-15] MEDS ORDERED: BISACODYL 10 MG/SUPPOSITORY RC PRN (14:30)
[2023-04-15] MEDS ORDERED: MINERAL OIL 133 ML ENEMA RC ONE (15:00)
[2023-04-15] MEDS ORDERED: SODIUM PHOSPHATE,MONO-DIBASIC 133 ML ENEMA RC ONE (15:00)
[2023-04-15] MEDS: cefTRIAXone 1 GM in D5W 50 ML IV SCH (15:53)
[2023-04-15 16:47] VITALS: BP_SYST 154; PULSE 84; RESP 24; TEMP 97.2; O2SAT 94
[2023-04-15] MEDS: QUEtiapine FUMARATE 25 MG TABLET PO SCH (18:58)
[2023-04-15 19:00] VITALS: BP_SYST 142; PULSE 81; RESP 16; TEMP 96.6; O2SAT 93
[2023-04-15 20:00] VITALS: BP_SYST 142; PULSE 81; RESP 16; TEMP 96.6; O2SAT 93
[2023-04-16] VITALS (7 sets, daily range): BP systolic 129–146; PULSE 73–83; RESP 16–24; TEMP 95.9–97.9; O2SAT 91–94
[2023-04-16] MEDS: LEVOTHYROXINE SODIUM 0.025 MG TABLET PO SCH (05:29)
[2023-04-16] MEDS: NACL 0.9% 1,000 ML IV SCH (05:31)
[2023-04-16 05:36] LABS: BASOPHILS % (AUTO) 0.3 % (0.0-2.0); EOSINOPHILS % (AUTO) 0.1 % (0.0-4.0); HEMATOCRIT 43.3 % (36-48); HEMOGLOBIN 14.9 g/dL (12.0-16.0); LYMPHOCYTES # (AUTO) 0.6 K/uL (1.0-5.5); LYMPHOCYTES % (AUTO) 9.6 % (20.5-51.5); MEAN CORPUSCULAR HEMOGLOBIN 34 pg (27-31); MEAN CORPUSCULAR HGB CONC 35 % (32-36); MEAN CORPUSCULAR VOLUME 99 fL (79.0-98.0); MONOCYTES # (AUTO) 0.8 K/uL (0.0-1.0); MONOCYTES % (AUTO) 12.4 % (1.7-9.3); NEUTROPHILS # (AUTO) 5.1 K/uL (1.8-7.7); NEUTROPHILS % (AUTO) 77.6 % (40.0-70.0); PLATELET COUNT (AUTO) 134 K/uL (130-430); RED BLOOD CELL COUNT(AUTO) 4.38 MIL/uL (4.2-6.2); RED CELL DISTRIBUTION WIDTH 13.7 % (9.0-15.0); WHITE BLOOD COUNT (AUTO) 6.6 K/uL (4.8-10.8)
[2023-04-16 06:04] LABS: ANION GAP 10 (5-15); CALCIUM 8.9 mg/dL (8.4-11.0); CARBON DIOXIDE 26 mmol/L (23-29); CHLORIDE 97 mmol/L (98-107); CREATININE 0.73 mg/dL (0.55-1.30); GLUCOSE 77 mg/dL (74-106); POTASSIUM 3.6 mmol/L (3.5-5.1); SODIUM SERUM 133 mmol/L (136-145); UREA NITROGEN, BLOOD 10 mg/dL (8-21)
[2023-04-16] MEDS: SODIUM CHLORIDE 1,000 MG TABLET PO SCH ×2 (09:27→20:50)
[2023-04-16] MEDS: MULTIVITS,CA,MINERALS/IRON/FA 1 TABLET PO SCH ×2 (09:27→20:50)
[2023-04-16] MEDS: PANTOPRAZOLE SODIUM 40 MG TAB PO SCH ×2 (09:27→20:50)
[2023-04-16] MEDS: amLODIPine BESYLATE 5 MG TABLET PO SCH (09:28)
[2023-04-16] MEDS: SIMVASTATIN 20 MG TABLET PO SCH (09:28)
[2023-04-16] MEDS: SENNOSIDES 8.6 MG TABLET PO SCH ×2 (09:28→20:50)
[2023-04-16] MEDS: CARVEDILOL 12.5 MG TABLET (COREG) PO SCH ×2 (09:29→20:49)
[2023-04-16] MEDS: CALCIUM CARBONATE/VITAMIN D3 1 TAB TABLET PO SCH ×2 (09:29→20:50)
[2023-04-16] MEDS: POLYETHYLENE GLYCOL 3350, 17 GM/ POWD.PACK PO SCH (09:29)
[2023-04-16] MEDS: MEMANTINE HCL 5 MG TABLET PO SCH ×2 (09:29→20:49)
[2023-04-16] MEDS: MINERAL OIL 30 ML UDC PO SCH (09:29)
[2023-04-16] MEDS: DOCUSATE SODIUM 250 MG CAPSULE PO SCH ×2 (09:30→20:49)
[2023-04-16] MEDS: DILTIAZEM HCL 180 MG CAP.SR.24H PO SCH (09:45)
[2023-04-16] MEDS: cefTRIAXone 1 GM in D5W 50 ML IV SCH (16:27)
[2023-04-16] MEDS: QUEtiapine FUMARATE 25 MG TABLET PO SCH (18:40)
[2023-04-17 01:12] VITALS: BP_SYST 151; PULSE 83; RESP 17; TEMP 96.7; O2SAT 92
[2023-04-17] MEDS: NACL 0.9% 1,000 ML IV SCH (04:59)
[2023-04-17] MEDS: LEVOTHYROXINE SODIUM 0.025 MG TABLET PO SCH (06:28)
[2023-04-17 07:39] LABS: BASOPHILS % (AUTO) 0.6 % (0.0-2.0); EOSINOPHILS % (AUTO) 0.5 % (0.0-4.0); HEMATOCRIT 42.2 % (36-48); HEMOGLOBIN 14.3 g/dL (12.0-16.0); LYMPHOCYTES # (AUTO) 0.8 K/uL (1.0-5.5); LYMPHOCYTES % (AUTO) 14.5 % (20.5-51.5); MEAN CORPUSCULAR HEMOGLOBIN 34 pg (27-31); MEAN CORPUSCULAR HGB CONC 34 % (32-36); MEAN CORPUSCULAR VOLUME 99 fL (79.0-98.0); MONOCYTES # (AUTO) 0.7 K/uL (0.0-1.0); MONOCYTES % (AUTO) 13.3 % (1.7-9.3); NEUTROPHILS # (AUTO) 3.9 K/uL (1.8-7.7); NEUTROPHILS % (AUTO) 71.1 % (40.0-70.0); PLATELET COUNT (AUTO) 137 K/uL (130-430); RED BLOOD CELL COUNT(AUTO) 4.27 MIL/uL (4.2-6.2); RED CELL DISTRIBUTION WIDTH 13.5 % (9.0-15.0); WHITE BLOOD COUNT (AUTO) 5.5 K/uL (4.8-10.8)
[2023-04-17 07:43] VITALS: BP_SYST 151; PULSE 84; RESP 18; TEMP 97.8; O2SAT 96
[2023-04-17 07:48] LABS: ANION GAP 11 (5-15); CALCIUM 8.6 mg/dL (8.4-11.0); CARBON DIOXIDE 25 mmol/L (23-29); CHLORIDE 99 mmol/L (98-107); CREATININE 0.55 mg/dL (0.55-1.30); GLUCOSE 66 mg/dL (74-106); SODIUM SERUM 135 mmol/L (136-145); UREA NITROGEN, BLOOD 10 mg/dL (8-21)
[2023-04-17 07:54] LABS: POTASSIUM 2.8 mmol/L (3.5-5.1)
[2023-04-17] MEDS ORDERED: KCL 40 mEq in 100 mL (PREMIX) 100 ML IV ONE (08:30)
[2023-04-17] MEDS: DILTIAZEM HCL 180 MG CAP.SR.24H PO SCH (08:30)
[2023-04-17] MEDS: CARVEDILOL 12.5 MG TABLET (COREG) PO SCH (08:30)
[2023-04-17] MEDS: DOCUSATE SODIUM 250 MG CAPSULE PO SCH (08:30)
[2023-04-17] MEDS: CALCIUM CARBONATE/VITAMIN D3 1 TAB TABLET PO SCH (08:31)
[2023-04-17] MEDS: PANTOPRAZOLE SODIUM 40 MG TAB PO SCH (08:31)
[2023-04-17] MEDS: amLODIPine BESYLATE 5 MG TABLET PO SCH (08:31)
[2023-04-17] MEDS: MINERAL OIL 30 ML UDC PO SCH (08:31)
[2023-04-17] MEDS: MEMANTINE HCL 5 MG TABLET PO SCH (08:31)
[2023-04-17] MEDS: POLYETHYLENE GLYCOL 3350, 17 GM/ POWD.PACK PO SCH (08:31)
[2023-04-17] MEDS: SENNOSIDES 8.6 MG TABLET PO SCH (08:31)
[2023-04-17] MEDS: SODIUM CHLORIDE 1,000 MG TABLET PO SCH (08:32)
[2023-04-17] MEDS: SIMVASTATIN 20 MG TABLET PO SCH (08:32)
[2023-04-17] MEDS: MULTIVITS,CA,MINERALS/IRON/FA 1 TABLET PO SCH (08:32)
[2023-04-17 09:54] VITALS: O2SAT 95
[2023-04-17] MEDS ORDERED: CEPH-548 PO (11:39)
[2023-04-17] MEDS ORDERED: POTASSIUM CHLORIDE 20 MEQ TABLET.ER PO ONE (11:45)
[2023-04-17] MEDS ORDERED: D5LR 1,000 ML IV SCH (11:45)
[2023-04-17 12:00] VITALS: BP_SYST 156; PULSE 77; RESP 18; TEMP 97.3; O2SAT 94
[2023-04-17] MEDS ORDERED: POTASSIUM CHLORIDE 40 MEQ in NS 250 ML IV ONE (12:00)
[2023-04-17 12:45] VITALS: BP_SYST 156; PULSE 77; RESP 18; TEMP 97.3; O2SAT 94
== END 2023-04-17 13:20 | disposition home or self-care (01) | DRG 392 ==
LOC: SED 11:33 → SMU 14:48 → STU 21:28 → SMU 04-15 14:00
PROVIDERS: ADMIT Internal Medicine; ATTEND Internal Medicine
DX: K59.00 Constipation, unspecified (principal); E87.1 Hypo-osmolality and hyponatremia; N39.0 Urinary tract infection, site not specified; F03.918 Unspecified dementia, unspecified severity, with other behavioral disturbance; F05 Delirium due to known physiological condition; E78.5 Hyperlipidemia, unspecified; I10 Essential (primary) hypertension; I70.90 Unspecified atherosclerosis; K57.90 Diverticulosis of intestine, part unspecified, without perforation or abscess without bleeding; K21.00 Gastro-esophageal reflux disease with esophagitis, without bleeding; N31.2 Flaccid neuropathic bladder, not elsewhere classified; R13.10 Dysphagia, unspecified; K80.20 Calculus of gallbladder without cholecystitis without obstruction; B96.20 Unspecified Escherichia coli [E. coli] as the cause of diseases classified elsewhere; Z66 Do not resuscitate; Z88.5 Allergy status to narcotic agent; Z88.2 Allergy status to sulfonamides; Z79.899 Other long term (current) drug therapy
CPT/HCPCS: 36415; 71045; 74018; 76700-TC; 80048; 80053; 80061; 80076; 81000; 81001; 81015; 83880; 84439; 84443; 85025; 85610-TC; 86886; 86900; 86901; 87040; 87086; 92610-GN; 97116-GP; 97530-GP; 99285; C9113; G0378; J0360; J0696; J1956; J3480; J7050; J7060

== ENCOUNTER 2023-06-05 12:33 | Emergency (ER) | payer OTHER, MEDICARE ==
[~2023-06-05] VITALS: Ht 154.9 cm; Wt 69.9 kg
[~2023-06-05 12:33] MED LIST changes: +ACET325T53 PO; +AMLO5TAB4 PO; +AMLO5TAB92 PO; +CEPH-548 PO; +CRAN450T9 PO; +DOCU250C14 PO; +LACT10SO7 PO; +LEVO25TA7 PO; +MAGN400T10 PO; +MEMA10TA56 PO; +MULT-976 PO; +POLY17PO4 PO; +QUET25TA36 PO; +RIVA20TA PO; +SODI1TAB3 PO; +TRIA15CR4 TP
[2023-06-05 12:40] VITALS: BP_SYST 125; PULSE 72; RESP 19; TEMP 97.9; O2SAT 99
[2023-06-05] MEDS: NACL 0.9% 1,000 ML IV ONE (14:00)
[2023-06-05 15:08] LABS: BASOPHILS # (AUTO) 0.1 K/uL (0.0-0.2); BASOPHILS % (AUTO) 0.8 % (0.0-2.0); EOSINOPHILS # (AUTO) 0.1 K/uL (0.0-0.4); EOSINOPHILS % (AUTO) 2.1 % (0.0-4.0); HEMATOCRIT 40.7 % (36-48); LYMPHOCYTES # (AUTO) 1.1 K/uL (1.0-5.5); LYMPHOCYTES % (AUTO) 16.7 % (20.5-51.5); MEAN CORPUSCULAR HEMOGLOBIN 34 pg (27-31); MEAN CORPUSCULAR HGB CONC 34 % (32-36); MEAN CORPUSCULAR VOLUME 99 fL (79.0-98.0); MONOCYTES # (AUTO) 0.9 K/uL (0.0-1.0); MONOCYTES % (AUTO) 13.3 % (1.7-9.3); NEUTROPHILS # (AUTO) 4.4 K/uL (1.8-7.7); NEUTROPHILS % (AUTO) 67.1 % (40.0-70.0); PLATELET COUNT (AUTO) 166 K/uL (130-430); RED BLOOD CELL COUNT(AUTO) 4.11 MIL/uL (4.2-6.2); RED CELL DISTRIBUTION WIDTH 14.5 % (9.0-15.0); WHITE BLOOD COUNT (AUTO) 6.5 K/uL (4.8-10.8)
[2023-06-05 15:33] LABS: ANION GAP 6 (5-15); CALCIUM 9.1 mg/dL (8.4-11.0); CARBON DIOXIDE 30 mmol/L (23-29); CHLORIDE 102 mmol/L (98-107); CREATININE 0.71 mg/dL (0.55-1.30); GLUCOSE 91 mg/dL (74-106); POTASSIUM 4.6 mmol/L (3.5-5.1); SODIUM SERUM 138 mmol/L (136-145); UREA NITROGEN, BLOOD 14 mg/dL (8-21)
[2023-06-05 15:51] LABS: ALANINE AMINOTRANSFERASE 15 U/L (12-78); ASPARTATE AMINOTRANSFERASE 14 U/L (10-37); BILIRUBIN,DIRECT 0.2 mg/dL (0.0-0.3); INR 1.1 (0.8-1.2); PROTHROMBIN TIME 11.3 SECS (9.5-12.5); TOTAL BILIRUBIN 0.5 mg/dL (0.0-1.0); TOTAL PROTEIN, SERUM 6.9 g/dL (6.4-8.3)
[2023-06-05 16:30] LABS: BILIRUBIN,URINE NEGATIVE (NEGATIVE); BLOOD, URINE 2+ (NEGATIVE); CLARITY/URINE SL CLOUDY (CLEAR); COLOR,URINE YELLOW (YELLOW); GLUCOSE,URINE NEGATIVE (NEGATIVE); KETONES,URINE NEGATIVE (NEGATIVE); LEUKOCYTE ESTERASE ,URINE 3+ (NEGATIVE); NITRITE, URINE NEGATIVE (NEGATIVE); PH,URINE 7.5 (5.0-8.0); PROTEIN URINE NEGATIVE (NEGATIVE); UROBILINOGEN,URINE 0.2 (0.2-1.0)
[2023-06-05 17:12] LABS: BACTERIA,URINE MANY /HPF (None Seen); MUCUS,URINE None Seen /LPF (None Seen); WBC,URINE 80-100 /HPF (0-3)
[2023-06-05] MEDS ORDERED: cefTRIAXone 2 GM VIAL ONE ×2 (17:27→17:28)
[2023-06-05 17:50] VITALS: BP_SYST 137; PULSE 72; RESP 24; TEMP 98.2; O2SAT 97
[2023-06-05] MEDS ORDERED: CEPH-548 PO (17:56)
== END 2023-06-05 17:56 | disposition home or self-care (01) ==
LOC: SED 12:33
DX: Z46.6 Encounter for fitting and adjustment of urinary device (principal); N39.0 Urinary tract infection, site not specified; I10 Essential (primary) hypertension; E78.5 Hyperlipidemia, unspecified; Z88.2 Allergy status to sulfonamides; Z88.5 Allergy status to narcotic agent; Z88.6 Allergy status to analgesic agent; Z88.8 Allergy status to other drugs, medicaments and biological substances; Z79.899 Other long term (current) drug therapy
CPT/HCPCS: 99285; 96365; 71045; 96361; 80076; 80048; 81001; 85025; 85610; 85730; 87040; 87086; 84484; 36415; 93005; 83605; 81000; 81015; J0696; J7030

== ENCOUNTER 2023-07-21 08:34 | Outpatient (CLI) | payer OTHER, MEDICARE ==
[2023-07-21 09:14] LABS: BASOPHILS # (AUTO) 0.1 K/uL (0.0-0.2); BASOPHILS % (AUTO) 1.2 % (0.0-2.0); EOSINOPHILS # (AUTO) 0.2 K/uL (0.0-0.4); EOSINOPHILS % (AUTO) 2.7 % (0.0-4.0); HEMATOCRIT 42.8 % (36-48); HEMOGLOBIN 14.4 g/dL (12.0-16.0); LYMPHOCYTES # (AUTO) 1.1 K/uL (1.0-5.5); LYMPHOCYTES % (AUTO) 17.8 % (20.5-51.5); MEAN CORPUSCULAR HEMOGLOBIN 34 pg (27-31); MEAN CORPUSCULAR HGB CONC 34 % (32-36); MEAN CORPUSCULAR VOLUME 101 fL (79.0-98.0); MONOCYTES # (AUTO) 0.6 K/uL (0.0-1.0); MONOCYTES % (AUTO) 10.1 % (1.7-9.3); NEUTROPHILS # (AUTO) 4.3 K/uL (1.8-7.7); NEUTROPHILS % (AUTO) 68.2 % (40.0-70.0); PLATELET COUNT (AUTO) 171 K/uL (130-430); RED BLOOD CELL COUNT(AUTO) 4.26 MIL/uL (4.2-6.2); RED CELL DISTRIBUTION WIDTH 14.1 % (9.0-15.0); WHITE BLOOD COUNT (AUTO) 6.3 K/uL (4.8-10.8)
[2023-07-21 09:33] LABS: ALANINE AMINOTRANSFERASE 30 U/L (12-78); ALBUMIN 3.1 g/dL (3.4-4.8); ANION GAP 3 (5-15); ASPARTATE AMINOTRANSFERASE 5 U/L (10-37); CALCIUM 8.8 mg/dL (8.4-11.0); CARBON DIOXIDE 32 mmol/L (23-29); CHLORIDE 103 mmol/L (98-107); CHOLESTEROL 129 mg/dL (<200); CREATININE 0.65 mg/dL (0.55-1.30); GLUCOSE 90 mg/dL (74-106); HDL CHOLESTEROL 54 mg/dL (>55); POTASSIUM 4.1 mmol/L (3.5-5.1); SODIUM SERUM 138 mmol/L (136-145); THYROID STIMULATING HORMONE 6.44 uIu/mL (0.34-4.82); TOTAL BILIRUBIN 0.4 mg/dL (0.0-1.0); TOTAL PROTEIN, SERUM 7.1 g/dL (6.4-8.3); TRIGLYCERIDES 83 mg/dL (30-150); UREA NITROGEN, BLOOD 11 mg/dL (8-21)
== END 2023-07-21 20:44 | disposition home or self-care (01) ==
LOC: SLB 08:34
PROVIDERS: ATTEND Internal Medicine
DX: E87.1 Hypo-osmolality and hyponatremia (principal); E03.9 Hypothyroidism, unspecified; I10 Essential (primary) hypertension; R53.83 Other fatigue
CPT/HCPCS: 36415; 80053; 80061; 83735; 84443; 85025